=== PATIENT | male | born 1940 | race Caucasian/White ===

== ENCOUNTER → 2016-12-22 | Outpatient (CLI) | payer OTHER ==
[~2016-12-22] MED LIST: ACET325T96 PO; AMIO200T4 PO; AMLO-110 PO; CALC500C3 PO; FERR1TAB23 PO; METO100T44 PO; WARF5TAB7 PO; WARFARIN PO
[2016-12-22 13:36] LABS: BASO % 0.4 %; BASO ABS # 0.02 K/uL (0-0.2); COMPLETE YES; EOS % 0.7 %; HEMATOCRIT 38.9 % (42-52); LYMPH % 33.2 %; LYMPH ABS # 1.82 K/uL (1.2-3.4); MEAN CELL VOLUME 89.6 fL (80-100); MEAN CORPUSCULAR HEMOGLOBIN 29.3 pg (25-34); MEAN CORPUSCULAR HGB CONC 32.6 g/dl (32-36); MONO % 17.3 %; NEUT % 48.4 %; PLATELET COUNT 167 K/uL (130-400); RED BLOOD COUNT 4.34 M/uL (4.7-6.1); WHITE BLOOD COUNT 5.48 K/uL (4.8-10.8)
[2016-12-22 14:14] LABS: ALT/SGPT 24 U/L (12-78); BLOOD UREA NITROGEN 23 mg/dl (7-18); BUN/CREATININE RATIO 15.5 (10-20); CALCIUM 8.9 mg/dl (8.5-10.1); CARBON DIOXIDE 28 mmol/L (21-32); CHLORIDE 109 mmol/L (98-107); GLUCOSE 93 mg/dl (70-99); POTASSIUM 4.2 mmol/L (3.5-5.1); SODIUM 142 mmol/L (136-145)
[2016-12-22 14:23] LABS: ALB/GLOB RATIO 0.9 (0.9-2); ALKALINE PHOSPHATASE 91 U/L (45-117); AST/SGOT 21 U/L (15-37); FERRITIN 14.9 ng/ml (8.0-388.0); TOTAL IRON BINDING CAPACITY 413 mcg/dl (250-450)
--- NOTE | 2016-12-28 14:16 | CODING QUERY MEDICAL NECESSITY ---
SUPPORTING DIAGNOSIS NEEDED Dr. Genao, A supporting diagnosis is required for the test/procedure performed on this patient in order for us to be reimbursed by the patient's insurance. Please provide a supporting diagnosis for the following test/procedure listed below next to the test name along with your signature. *If there is no additional diagnosis for this patient that would support the following test/procedure please document that below next to the test/procedure. Test(s)/Procedure(s) that require a supporting diagnosis: * ([id number]) B12 VITAMIN LEVEL DIAGNOSIS: DATE OF SERVICE: 12/22/16 Provider Signature: Date: Thank you Delfino Llanos [facility] Information Management Once completed, please kindly fax back to [phone] For questions please call [phone]
== END | disposition home or self-care (01) ==
LOC: C.LABBC 09:59
PROVIDERS: ATTEND Internal Medicine
DX: N18.3 Chronic kidney disease, stage 3 (moderate) (principal); D64.9 Anemia, unspecified

== ENCOUNTER → 2017-04-20 | Day surgery (SDC) | payer OTHER ==
[2017-04-06 08:00] VITALS: BMI 21.0
[~2017-04-20] VITALS: Ht 182.9 cm; Wt 72.7 kg
[~2017-04-20] MED LIST changes: -ACET325T96 PO; -CALC500C3 PO; +LIDOCAINE HCL 2% 2 ML VIAL (20MG/ML) ONE; -METO100T44 PO; +METO1TAB69 PO; +PHENYLEPHRINE 100MCG/ML 5ML SYR ONE; +PROPOFOL IV EMULSION 10 MG/ML 20 ML VIAL IV ONE; +SODIUM CHLORIDE 0.9% 500ML 500 ML IV ONE; -WARFARIN PO
[2017-04-20 12:32] VITALS: Ht 182.9 cm; Wt 72.7 kg
[2017-04-20 12:38] VITALS: TEMP 36.1
--- NOTE | 2017-04-20 13:04 | Endo History and Physical ---
History & Physical Date of Service: Apr 20, 2017. Chief Complaint: 5 YEAR FOLLOW UP FAMILY HX-SISTER Referring Physician: DR Aftab GAONA History of Present Illness 77 yo CM who presents for colonoscopy secondary to family history of colon cancer. Past Medical History Atrial Fibrillation, Cancer, Hypertension, Kidney Disease Past Surgical History Hx Cardiac Surgery: No Hx Internal Defibrillator: No Hx Pacemaker: No Hx Abdominal Surgery: No Hx of Implantable Prosthesis: No Hx Post-Op Nausea and Vomiting: No Hx Cancer Surgery: Yes (ESOPHAGEAL TUMOR REMOVAL AND RECONSTRUCTION) Hx Thoracic Surgery: No Hx Orthopedic: Yes (RT HAND TENDON EXCISION) Hx Urinary Tract Surgery: Yes (TURP) Family History Colon CA Social History Smoking Status: Former Smoker Hx Substance Use: No Hx Alcohol Use: Yes (RARELY) Allergies Coded Allergies: Ampicillin (Unverified Allergy, Mild, RED PIMPLES ON CHEST, 04/20/17) Amoxicillin (Unverified Allergy, Unknown, RASH, 04/20/17) Penicillins (Verified Allergy, Unknown, RASH, 04/20/17) AMOXICILLIN Current Medications Reported Home Medications Medications Dose Route/Sig Max Daily Dose Days Date Category Iron (Ferrous Sulfate) 325 Mg Tab 1 Tab PO DAILY AT LUNCH 04/06/17 Reported Toprol-Xl (Metoprolol Succinate) 100 Mg Tabcr 100 Mg PO QAM 04/06/17 Reported Jantoven (Warfarin Sodium) 5 Mg Tab 5 Mg PO QPM 04/06/17 Reported Norvasc (Amlodipine Besylate) 5 Mg Tab 5 Mg PO QAM 12/06/13 Reported Cordarone (Amiodarone Hcl) 200 Mg Tab 200 Mg PO QAM 12/06/13 Reported Vital Signs Weight (Kilograms): 72.73 Height (Feet): 6 Height (Inches): 0 Date Time Temp Pulse Resp B/P (MAP) Pulse Ox O2 Delivery O2 Flow Rate FiO2 04/20/17 12:38 36.1 115 18 134/108 (117) 99 Room Air Physical Exam General Appearance: WD/WN, no apparent distress Respiratory/Chest: Auscultation: breath sounds normal Cardiovascular: Heart Auscultation: RRR Abdomen: Bowel Sounds: normal Inspection & Palpation: soft, non-distended, no tenderness, guarding & rebound Assessment and Plan Assessment: 77 yo CM who presents for colonoscopy secondary to family history of colon cancer. Plan: Proceed with colonoscopy.
--- NOTE | 2017-04-20 13:27 | Discharge Instructions ---
Endoscopy Patient Instructions Date / Procedure(s) Performed Apr 20, 2017. Colonoscopy Allergy Information Coded Allergies: Ampicillin (Unverified Allergy, Mild, RED PIMPLES ON CHEST, 04/20/17) Amoxicillin (Unverified Allergy, Unknown, RASH, 04/20/17) Penicillins (Verified Allergy, Unknown, RASH, 04/20/17) AMOXICILLIN Discharge Date / Findings Apr 20, 2017. Diverticulosis Internal hemorrhoids Medication Instructions Stopped Medication(s): COUMADIN IRON OK to resume all medications today as prescribed Reported Home Medications Medications Dose Route/Sig Max Daily Dose Days Date Category Iron (Ferrous Sulfate) 325 Mg Tab 1 Tab PO DAILY AT LUNCH 04/06/17 Reported Toprol-Xl (Metoprolol Succinate) 100 Mg Tabcr 100 Mg PO QAM 04/06/17 Reported Jantoven (Warfarin Sodium) 5 Mg Tab 5 Mg PO QPM 04/06/17 Reported Norvasc (Amlodipine Besylate) 5 Mg Tab 5 Mg PO QAM 12/06/13 Reported Cordarone (Amiodarone Hcl) 200 Mg Tab 200 Mg PO QAM 12/06/13 Reported Provider Instructions Activity Restrictions - No exercising or heavy lifting for 24 hours. - Do not drink alcohol the day of the procedure. - Do not drive a car or operate machinery until the day after the procedure. - Do not make any important decisions or sign important papers in 24 hours after the procedure. Following Day: - Return to full activity which may include returning to work/school. Diet Start your diet with liquids and light foods (jello, soup, juice, toast). Then eat your usual diet if not nauseated. Treatment For Common After Affects For mild abdominal pain, bloating, or excessive gas: - Rest - Eat lightly - Lie on right side Follow-Up Information Follow-up with DR Aftab GAONA as scheduled Anesthesia Information What You Should Know You have had a procedure that required some medicine to reduce anxiety and discomfort. This treatment is called moderate sedation. After receiving the treatment, you may be sleepy, but you will be able to breathe on your own. The effects of the treatment may last for several hours. Follow these instructions along with Activity/Diet recommendations noted above: * Do NOT do anything where dizziness or clumsiness would be dangerous. * Rest quietly at home today, then you can be up and about tomorrow. * Have a responsible person stay with you the rest of today. * You may have had an I.V. today. If so, you may take the dressing off later today. Recommendations Call your doctor if: * Trouble breathing * Continuous vomiting for more than 24 hours * Temperature above 101 degrees * Severe abdominal pain or bloating * Pain not relieved by pain medicine ordered * There is increased drainage or redness from any incision * A large amount of rectal bleeding greater than 2-3 tablespoons. (If you had a polyp/s removed or have hemorrhoids, a small amount of blood - from the rectum is to be expected.) * You have any unanswered questions or concerns. IN THE EVENT OF A SERIOUS EMERGENCY, GO TO THE NEAREST EMERGENCY ROOM Your discharge instructions were prepared by provider Nixon Miller. Patient Instructions Signature Page Randal Bridges Patient (or Guardian) Signature/Date: I have read and understand the instructions given to me by my caregivers. Caregiver/RN/Doctor Signature/Date: The above-named patient and/or guardian has received patient instructions on this date. + Original Patient Signature Page (only) stays with chart. Please make copy for patient.
--- NOTE | 2017-04-20 13:35 | GI REPORT ---
Procedure Date: 04/20/2017 12:51 PM Procedure: Colonoscopy Indications: Family history of colon cancer in a first-degree relative Medicines: Monitored Anesthesia Care Complications: No immediate complications. Estimated Blood Loss: Estimated blood loss: none. Procedure: Pre-Anesthesia Assessment: - Prior to the procedure, a History and Physical was performed, and patient medications and allergies were reviewed. The patient's tolerance of previous anesthesia was also reviewed. The risks and benefits of the procedure and the sedation options and risks were discussed with the patient. All questions were answered, and informed consent was obtained. Prior Anticoagulants: The patient has taken Coumadin (warfarin), last dose was 5 days prior to procedure. ASA Grade Assessment: III - A patient with severe systemic disease. After reviewing the risks and benefits, the patient was deemed in satisfactory condition to undergo the procedure. After I obtained informed consent, the scope was passed under direct vision. Throughout the procedure, the patient's blood pressure, pulse, and oxygen saturations were monitored continuously. The scope was introduced through the anus and advanced to the terminal ileum. The colonoscopy was performed without difficulty. The patient tolerated the procedure well. The quality of the bowel preparation was good. The terminal ileum, ileocecal valve, appendiceal orifice, and rectum were photographed. Findings: Multiple small-mouthed diverticula were found in the sigmoid colon. Non-bleeding internal hemorrhoids were found during retroflexion. The hemorrhoids were small. Impression: - Diverticulosis in the sigmoid colon. - Non-bleeding internal hemorrhoids. - No specimens collected. Recommendation: - Resume previous diet. - Continue present medications. - No repeat colonoscopy due to age and the absence of advanced adenomas. - Return to primary care physician as previously scheduled. Nixon Miller DO 04/20/2017 1:34:08 PM This report has been signed electronically. Note Initiated On: 04/20/2017 12:51 PM I attest to the content of the Intraoperative Record and orders documented therein, exceptions below
[2017-04-20 14:00] VITALS: BP 110/82; PULSE 86; O2SAT 97
--- NOTE | 2017-04-20 14:15 | Anesthesiology Progress Note ---
Anesthesia Post Op Note Date & Time Apr 20, 2017 at 14:15 Vital Signs Pain Intensity: 0 Vital Signs Past 12 Hours Date Time Temp Pulse Resp B/P (MAP) Pulse Ox O2 Delivery O2 Flow Rate FiO2 04/20/17 14:00 86 16 110/82 (91) 97 Room Air 04/20/17 13:45 99 16 101/78 (86) 97 Room Air 04/20/17 13:30 90 16 97/63 (74) 98 Room Air 04/20/17 12:38 36.1 115 18 134/108 (117) 99 Room Air Notes Mental Status: alert / awake / arousable, participated in evaluation Pt Amnestic to Procedure: Yes Nausea / Vomiting: adequately controlled Pain: adequately controlled Airway Patency, RR, SpO2: stable & adequate BP & HR: stable & adequate Hydration State: stable & adequate Anesthetic Complications: no major complications apparent
== END | disposition home or self-care (01) ==
LOC: C.GI 12:18
PROVIDERS: ATTEND Internal Medicine
DX: Z80.0 Family history of malignant neoplasm of digestive organs (principal); K57.30 Diverticulosis of large intestine without perforation or abscess without bleeding; K64.8 Other hemorrhoids; I48.91 Unspecified atrial fibrillation; I12.9 Hypertensive chronic kidney disease with stage 1 through stage 4 chronic kidney disease, or unspecified chronic kidney disease; N18.9 Chronic kidney disease, unspecified; Z87.891 Personal history of nicotine dependence; Z79.01 Long term (current) use of anticoagulants

== ENCOUNTER → 2017-12-09 | Outpatient (CLI) | payer OTHER ==
[~2017-12-09] MED LIST changes: -LIDOCAINE HCL 2% 2 ML VIAL (20MG/ML) ONE; +METO100T44 PO; -METO1TAB69 PO; -PHENYLEPHRINE 100MCG/ML 5ML SYR ONE; -PROPOFOL IV EMULSION 10 MG/ML 20 ML VIAL IV ONE; -SODIUM CHLORIDE 0.9% 500ML 500 ML IV ONE
--- NOTE | 2017-12-09 15:31 | DIAGNOSTIC IMAGING REPORT ---
CHEST 2 VIEWS ROUTINE HISTORY: 77 years-old Male R05 [id number] acute cough COMPARISON: Chest radiographs 09/09/2016 TECHNIQUE: PA and lateral views of the chest FINDINGS: Cardiac silhouette is within normal limits. Surgical clips project over the left mediastinum. Atherosclerosis of the aorta. No pneumothorax. Lungs are mildly hyperinflated. There are trace bilateral pleural effusions with subtle interstitial opacities within the right perihilar distribution and lateral right midlung with subsegmental consolidative bibasilar opacities. No overt pulmonary edema. Bones appear grossly intact. IMPRESSION: 1. Subsegmental bibasilar consolidative opacities with trace effusions are noted in addition to subtle interstitial opacities of the right midlung suspicious for pneumonia. 2. Hyperinflation. The above report was generated using voice recognition software. It may contain grammatical, syntax or spelling errors. Electronically signed by: Robert Bacon M.D. 12/09/2017 3:30 PM Dictated Date/Time: 12/09/2017 3:27 PM
== END | disposition home or self-care (01) ==
LOC: C.RADBC 15:12
PROVIDERS: ATTEND Internal Medicine
DX: R05 Cough (principal)

== ENCOUNTER → 2018-01-02 | Outpatient (CLI) | payer OTHER ==
--- NOTE | 2018-01-02 11:30 | DIAGNOSTIC IMAGING REPORT ---
CHEST 2 VIEWS ROUTINE CLINICAL HISTORY: J18.9 Community acquired [id number] COMPARISON STUDY: 12/09/2017 FINDINGS: The chest has an emphysematous configuration. There are multiple surgical clips projected over the mid mediastinum. There is no acute parenchymal consolidation. There is been interval resolution of the previous identified by basilar opacities. There is a trace right pleural effusion. There is no failure.[ IMPRESSION: 1. Pulmonary emphysema 2. Trace right pleural effusion 3. No evidence of focal pulmonary consolidation Electronically signed by: Matt Pink M.D. 01/02/2018 11:29 AM Dictated Date/Time: 01/02/2018 11:27 AM
== END | disposition home or self-care (01) ==
LOC: C.RADBC 11:12
PROVIDERS: ATTEND Nurse Practitioner Adult Health
DX: J18.9 Pneumonia, unspecified organism (principal); J43.9 Emphysema, unspecified

== ENCOUNTER 2021-06-08 21:59 | Inpatient (IN) ==
[2021-06-08] MEDS ORDERED: ERTAPENEM SODIUM 10 ML IV STA (22:23)
[2021-06-08] MEDS ORDERED: SODIUM CHLORIDE 0.9% 1000ML 1,000 ML IV SCH ×2 (22:30→23:30)
[2021-06-08 22:31] LABS: iSTAT Creatinine 2.5 mg/dl (0.6-1.3); iSTAT Hemoglobin 9.2 g/dl (14.0-18.0); iSTAT Ionized Calcium 1.16 mmol/l (1.12-1.32); iSTAT Potassium 3.5 mmol/L (3.3-5.0)
--- NOTE | 2021-06-08 22:35 | Emergency Department Note ---
History of Present Illness General Chief complaint: Fall Stated complaint: FALL Time Seen by Provider: 06/08/21 22:13 History of Present Illness 81-year-old male presents to the ED with his son and . The patient's son states that he had a fever of 104 earlier today. His fever started yesterday as a mild fever. Today he is weak. He was working on the farm. When he came in he was very weak. He fell going up the steps to go to the bathroom. The son states that he seemed a little disoriented earlier. The patient's reports some diarrhea yesterday and today. He does confirm feeling weak. He states that he did not take any of his medications today. Denies any chest pains or shortness of breath. Symptoms are worse with exertion. Denies any injuries related to his fall. He is reportedly on anticoagulation. Home Medications Medication Instructions Recorded Confirmed Type ferrous sulfate 325 mg (65 mg 325 mg PO QDL 04/29/20 06/08/21 History iron) tablet (Iron (ferrous sulfate)) apixaban 2.5 mg tablet (Eliquis) 2.5 mg PO BID #180 tab 07/25/20 06/08/21 Rx amiodarone 200 mg tablet 200 mg PO DAILY #90 tab 09/08/20 06/08/21 Rx amlodipine 5 mg tablet 5 mg PO DAILY #90 tab 10/13/20 06/08/21 Rx metoprolol succinate 50 mg 50 mg PO BID #180 tab 10/27/20 06/08/21 Rx tablet,extended release 24 hr Allergies Allergy/AdvReac Type Severity Reaction Status Date / Time amoxicillin Allergy Mild RASH Verified 06/08/21 22:51 ampicillin Allergy Mild RED Verified 06/08/21 22:51 PIMPLES ON CHEST Penicillins Allergy Mild RASH Verified 06/08/21 22:51 Past Med/Surg History Medical History (Updated 06/09/21 @ 00:50 by Vijay Bloom DO) Anemia Anxiety no meds Atrial fibrillation follows with Dr. 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 Sister Colorectal cancer Breast cancer Other No family history of adverse response to anesthesia Denies family history of Ovarian cancer Prostate cancer Myocardial infarction Osteoarthritis Lung cancer Social History Smoking Status: Never smoker Tobacco Type: Cigarettes, Pipe and Cigars Age Started Using Tobacco: 9; Age Quit Using Tobacco: 71; packs per day: 0.5; Second Hand Exposure: No; Hx Alcohol Use: No Hx Substance Use: No Preferred Language: Pakistani Communication Ability: Effective Visual Impairment: Diminished Hearing Ability: Hard of Hearing Pulmonologist Intensivist Required: No Beliefs That Will Affect Care: None marital status: Current Living Situation: Spouse current occupational status: employed current occupation: [employer] How many Children do You have: 1 Feels Safe at Home: Yes Childhood Exposure to Second-Hand Smoke: No caffeine: Yes (drinks coffee daily) Dental Care, Regularly: No Physical Activity Frequency: Daily Physical Activity Frequency Comment: is a landrum Seatbelt Use: always Sunscreen Use: No Assistive Devices: Denture - Upper and Glasses Review of Systems A total of 10 systems reviewed and were otherwise negative Physical Exam Vital Signs Vital Signs - 24 hr 06/08/21 22:02 06/08/21 22:10 06/08/21 22:20 Temperature 37.5 C Temperature Source Temporal Artery Scan Pulse Rate 186 H 176 H 157 H Pulse Rate from SpO2 Sensor 173 H 146 H Respiratory Rate 18 25 H 25 H Respiratory Effort / Characteristics Blood Pressure 101/38 L 119/71 105/69 Blood Pressure Mean 59 87 81 Pulse Oximetry 95 94 95 Oxygen Delivery Method Room Air Sepsis Recent Fever Within 48 Hours Yes Sepsis New/Unexplained Change in Mental Status Yes Sepsis Action Taken by Nursing Physician Notified 06/08/21 22:23 06/08/21 22:30 06/08/21 22:40 Temperature Temperature Source Pulse Rate 160 H 146 H Pulse Rate from SpO2 Sensor 164 H 135 H Respiratory Rate 28 H 28 H Respiratory Effort / Characteristics Non-Labored Blood Pressure 131/79 108/66 Blood Pressure Mean 96 80 Pulse Oximetry 96 94 93 Oxygen Delivery Method Room Air Sepsis Recent Fever Within 48 Hours Sepsis New/Unexplained Change in Mental Status Sepsis Action Taken by Nursing 06/08/21 22:50 06/08/21 23:00 06/08/21 23:10 Temperature Temperature Source Pulse Rate 135 H 150 H 143 H Pulse Rate from SpO2 Sensor 118 H 148 H 118 H Respiratory Rate 19 31 H 31 H Respiratory Effort / Characteristics Blood Pressure 117/57 L 96/68 L 108/61 Blood Pressure Mean 77 77 76 Pulse Oximetry 95 93 93 Oxygen Delivery Method Room Air Room Air Sepsis Recent Fever Within 48 Hours Sepsis New/Unexplained Change in Mental Status Sepsis Action Taken by Nursing 06/08/21 23:20 06/08/21 23:30 Temperature Temperature Source Pulse Rate 150 H 137 H Pulse Rate from SpO2 Sensor 122 H 131 H Respiratory Rate 31 H 25 H Respiratory Effort / Characteristics Blood Pressure 98/58 L 90/55 L Blood Pressure Mean 71 66 Pulse Oximetry 96 93 Oxygen Delivery Method Room Air Room Air Sepsis Recent Fever Within 48 Hours Sepsis New/Unexplained Change in Mental Status Sepsis Action Taken by Nursing CONSTITUTIONAL/VITAL SIGNS: Reviewed / noted above. GENERAL: Non-toxic in appearance. INTEGUMENTARY: Warm, dry, and [place]. HEAD: Normocephalic. EYES: without scleral icterus or trauma. ENT/OROPHARYNX: clear and moist. LYMPHADENOPATHY/NECK: Is supple without lymphadenopathy or meningismus. RESPIRATORY: Clear to auscultation bilaterally. No increased work of breathing. CARDIOVASCULAR: Tachycardic rate and irregular rhythm. GI/ABDOMEN: Soft and nontender. No organomegaly or pulsatile mass. EXTREMITIES: Warm and well perfused. BACK: No CVA tenderness. NEUROLOGICAL: Intact without focal deficits. PSYCHIATRIC: normal affect. MUSCULOSKELETAL: Normally developed with good muscle tone. TRIAGE NURSING DOCUMENTATION REVIEWED. Course Administered Medications Discontinued Medications Sodium Chloride (Nss 1000ml) 1,000 mls @ 999 mls/hr IV .Q1H1M REGINE Stop: 06/08/21 23:24 Last Infusion: 06/08/21 23:26 Dose: 0 mls/hr Documented by: [id number] Admin: 06/08/21 22:33 Dose: 999 mls/hr Documented by: [id number] Sodium Chloride (Nss 1000ml) 1,000 mls @ 999 mls/hr IV .Q1H1M REGINE Stop: 06/09/21 00:30 Last Admin: 06/08/21 22:47 Dose: 999 mls/hr Documented by: [id number] Ertapenem (Invanz) 10 mls @ 2 mls/min IV NOW STA Stop: 06/08/21 22:27 Last Admin: 06/08/21 22:38 Dose: 2 mls/min Documented by: [id number] Metoprolol Tartrate (Metoprolol Tartrate 1 Mg/Ml Vial) 5 mg IV NOW STA Stop: 06/08/21 23:11 Last Admin: 06/08/21 23:20 Dose: 5 mg Documented by: [id number] Medical Decision Making Differential Diagnosis Differential includes acute coronary syndrome, myocardial infarction, CVA, TIA, anemia, infection, pneumonia, UTI, pyelonephritis, poor nutrition, dehydration, electrolyte disturbance,hypoglycemia. Medical Records Attestation: I reviewed the patient's medical records. Home Medications Current Medication List: was personally reviewed by me Laboratory Data Attestation: I reviewed the patient's lab results. Result diagrams: 06/08/21 22:14 06/08/21 22:14 Lab Results 06/08/21 06/08/21 06/08/21 Range/Units 22:14 22:14 22:14 WBC 6.57 (4.8-10.8) K/uL RBC 3.57 L (4.7-6.1) M/uL Hgb 9.0 L (14.0-18.0) g/dL POC Hgb (14.0-18.0) g/dl Hct 29.4 L (42-52) % POC Hct (42-52) % MCV 82.4 (80-100) fL MCH 25.2 (25-34) pg MCHC 30.6 L (32-36) g/dL RDW Std Deviation 49.8 H (36.4-46.3) fL RDW Coeff of Familia 18.7 H (11.5-14.5) % Plt Count 84 L (130-400) K/uL Immature Gran % (Auto) 0.6 % Neut % (Auto) 89.1 % Lymph % (Auto) 4.7 % Aiken % (Auto) 5.6 % Eos % (Auto) 0.0 % Baso % (Auto) 0.0 % Neut # (Auto) 5.85 (1.4-6.5) K/uL Lymph # (Auto) 0.31 L (1.2-3.4) K/uL Aiken # (Auto) 0.37 (0.11-0.59) K/uL Eos # (Auto) 0.00 (0-0.5) K/uL Baso # (Auto) 0.00 (0-0.2) K/uL Immature Gran # (Auto) 0.04 H (0.00-0.02) K/uL Platelet Estimate Decreased L (Normal) Giant Platelets 1+ Polychromasia 1+ PT 10.9 (9.0-12.0) Seconds INR 1.1 (0.9-1.1) APTT 22.2 (21.0-31.0) Seconds PTT Ratio 0.8 POC Sodium (135-144) mmol/L Sodium 138 (136-145) mmol/L POC Potassium (3.3-5.0) mmol/L Potassium 3.4 L (3.5-5.1) mmol/L POC Chloride (101-112) mmol/L Chloride 106 (98-107) mmol/L Carbon Dioxide 20 L (21-32) mmol/L POC Total CO2 (24-31) mmol/L Anion Gap 12.0 H (3-11) POC Anion Gap (16-25) mmol/L POC BUN (7-18) mg/dl BUN 30 H (7-18) mg/dl Creatinine 2.49 H (0.6-1.4) mg/dl POC Creatinine (0.6-1.3) mg/dl Est Cr Clr Drug Dosing Not Reportable Est GFR ( Amer) 26.8 ml/min Est GFR (Non-Af Amer) 23.2 ml/min BUN/Creatinine Ratio 12.1 (10-20) Glucose 204 H (70-99) mg/dl POC Glucose (other) (70-99) mg/dl Lactate (0.4-2.0) mmol/L Calcium 9.2 (8.5-10.1) mg/dl POC Ioniz Calcium Kia (1.12-1.32) mmol/l Magnesium 2.0 (1.8-2.4) mg/dl Total Bilirubin 1.2 H (0.2-1) mg/dl AST 23 (15-37) U/L ALT 20 (12-78) U/L Alkaline Phosphatase 104 (45-117) U/L Troponin I 0.026 (0-0.045) ng/ml Total Protein 7.8 (6.4-8.2) gm/dl Albumin 3.3 L (3.4-5.0) gm/dl Globulin 4.5 H (2.5-4.0) gm/dl Albumin/Globulin Ratio 0.7 L (0.9-2) Procalcitonin (0-0.5) ng/ml COVID-19 Eval Order SARS-CoV-2 (PCR) (Negative) 06/08/21 06/08/21 06/08/21 Range/Units 22:14 22:14 22:17 WBC (4.8-10.8) K/uL RBC (4.7-6.1) M/uL Hgb (14.0-18.0) g/dL POC Hgb (14.0-18.0) g/dl Hct (42-52) % POC Hct (42-52) % MCV (80-100) fL MCH (25-34) pg MCHC (32-36) g/dL RDW Std Deviation (36.4-46.3) fL RDW Coeff of Familia (11.5-14.5) % Plt Count (130-400) K/uL Immature Gran % (Auto) % Neut % (Auto) % Lymph % (Auto) % Aiken % (Auto) % Eos % (Auto) % Baso % (Auto) % Neut # (Auto) (1.4-6.5) K/uL Lymph # (Auto) (1.2-3.4) K/uL Aiken # (Auto) (0.11-0.59) K/uL Eos # (Auto) (0-0.5) K/uL Baso # (Auto) (0-0.2) K/uL Immature Gran # (Auto) (0.00-0.02) K/uL Platelet Estimate (Normal) Giant Platelets Polychromasia PT (9.0-12.0) Seconds INR (0.9-1.1) APTT (21.0-31.0) Seconds PTT Ratio POC Sodium (135-144) mmol/L Sodium (136-145) mmol/L POC Potassium (3.3-5.0) mmol/L Potassium (3.5-5.1) mmol/L POC Chloride (101-112) mmol/L Chloride (98-107) mmol/L Carbon Dioxide (21-32) mmol/L POC Total CO2 (24-31) mmol/L Anion Gap (3-11) POC Anion Gap (16-25) mmol/L POC BUN (7-18) mg/dl BUN (7-18) mg/dl Creatinine (0.6-1.4) mg/dl POC Creatinine (0.6-1.3) mg/dl Est Cr Clr Drug Dosing Est GFR ( Amer) ml/min Est GFR (Non-Af Amer) ml/min BUN/Creatinine Ratio (10-20) Glucose (70-99) mg/dl POC Glucose (other) (70-99) mg/dl Lactate 2.7 H* (0.4-2.0) mmol/L Calcium (8.5-10.1) mg/dl POC Ioniz Calcium Kia (1.12-1.32) mmol/l Magnesium (1.8-2.4) mg/dl Total Bilirubin (0.2-1) mg/dl AST (15-37) U/L ALT (12-78) U/L Alkaline Phosphatase (45-117) U/L Troponin I (0-0.045) ng/ml Total Protein (6.4-8.2) gm/dl Albumin (3.4-5.0) gm/dl Globulin (2.5-4.0) gm/dl Albumin/Globulin Ratio (0.9-2) Procalcitonin 13.63 H (0-0.5) ng/ml COVID-19 Eval Order Covid19 at [facility] SARS-CoV-2 (PCR) (Negative) 06/08/21 06/08/21 06/09/21 Range/Units 22:17 22:18 00:01 WBC (4.8-10.8) K/uL RBC (4.7-6.1) M/uL Hgb (14.0-18.0) g/dL POC Hgb 9.2 L (14.0-18.0) g/dl Hct (42-52) % POC Hct 27 L (42-52) % MCV (80-100) fL MCH (25-34) pg MCHC (32-36) g/dL RDW Std Deviation (36.4-46.3) fL RDW Coeff of Familia (11.5-14.5) % Plt Count (130-400) K/uL Immature Gran % (Auto) % Neut % (Auto) % Lymph % (Auto) % Aiken % (Auto) % Eos % (Auto) % Baso % (Auto) % Neut # (Auto) (1.4-6.5) K/uL Lymph # (Auto) (1.2-3.4) K/uL Aiken # (Auto) (0.11-0.59) K/uL Eos # (Auto) (0-0.5) K/uL Baso # (Auto) (0-0.2) K/uL Immature Gran # (Auto) (0.00-0.02) K/uL Platelet Estimate (Normal) Giant Platelets Polychromasia PT (9.0-12.0) Seconds INR (0.9-1.1) APTT (21.0-31.0) Seconds PTT Ratio POC Sodium 137 (135-144) mmol/L Sodium (136-145) mmol/L POC Potassium 3.5 (3.3-5.0) mmol/L Potassium (3.5-5.1) mmol/L POC Chloride 105 (101-112) mmol/L Chloride (98-107) mmol/L Carbon Dioxide (21-32) mmol/L POC Total CO2 17 L (24-31) mmol/L Anion Gap (3-11) POC Anion Gap 20.0 (16-25) mmol/L POC BUN 28 H (7-18) mg/dl BUN (7-18) mg/dl Creatinine (0.6-1.4) mg/dl POC Creatinine 2.5 H (0.6-1.3) mg/dl Est Cr Clr Drug Dosing Est GFR ( Amer) ml/min Est GFR (Non-Af Amer) ml/min BUN/Creatinine Ratio (10-20) Glucose (70-99) mg/dl POC Glucose (other) 210 H (70-99) mg/dl Lactate 1.8 (0.4-2.0) mmol/L Calcium (8.5-10.1) mg/dl POC Ioniz Calcium Kia 1.16 (1.12-1.32) mmol/l Magnesium (1.8-2.4) mg/dl Total Bilirubin (0.2-1) mg/dl AST (15-37) U/L ALT (12-78) U/L Alkaline Phosphatase (45-117) U/L Troponin I (0-0.045) ng/ml Total Protein (6.4-8.2) gm/dl Albumin (3.4-5.0) gm/dl Globulin (2.5-4.0) gm/dl Albumin/Globulin Ratio (0.9-2) Procalcitonin (0-0.5) ng/ml COVID-19 Eval Order SARS-CoV-2 (PCR) NEGATIVE (Negative) Imaging Data Attestation: I personally reviewed and interpreted this imaging study as follows: My Impression: Chest x-ray: Per my interpretation there is no acute disease. No pneumothorax. No obvious infiltrate or pneumonitis. ECG Data Attestation: I personally reviewed and interpreted this ECG as follows: Additional Comments: Twelve-lead EKG: Per my interpretation there is a atrial fibrillation at a rate of 176. ST depressions and T wave inversions in the inferolateral leads. Head Trauma GCS Score: 15 MDM Narrative Patient is to the ED with generalized weakness and a reported fever earlier today. He did not take any antipyretics today. He also did not take his usual morning meds and afternoon meds because he was not feeling well. He did work outside doing some farming. He had a fever as high as 104 earlier today. The patient is found to be in a rapid atrial fibrillation with a heart rate in the 170s. His EKG shows some T wave inversions in ST depressions in the inferolateral leads. The patient denies striking his head when he fell going up the steps. Denies headache. Covid test is negative. BUN is 28 and creatinine is 2.5. This is up from a creatinine of baseline 1.6. Hemoglobin is 9. This is slightly below his baseline but not by much. Platelet count is 84. This is a little below his baseline as well. Lactic acid is 2.7. Troponin was negative. Chest x-ray was negative for acute disease. Procalcitonin level is elevated. The patient did receive some IV ertapenem and clearly for possibility of infection. He was given 3 L normal saline IV. He was also given metoprolol 5 mg IV. He was in A. fib with RVR. The heart rate did improve some. Blood pressure remains marginal around 100 systolic. He will be seen by the hospitalist for further inpatient evaluation and care. Impression & Plan Acute kidney injury, Generalized weakness, Acute dehydration, Diarrhea, Atrial fibrillation with RVR Discharge Plan Visit Data Chief Complaint: Fall Stated Complaint: FALL ED Provider: Vijay Bloom Discharge Problem: Acute kidney injury, Generalized weakness, Acute dehydration, Diarrhea, Atrial fibrillation with RVR Patient Disposition: Being Evaluated by Hospitalist Forms Stand Alone Forms: [facility], Virtual Emergency Department, Important Visit Information Prescriptions Prescriptions: No Action Eliquis 2.5 mg tablet 2.5 mg PO BID Qty: 180 RF: 3 amiodarone 200 mg tablet 200 mg PO DAILY Qty: 90 RF: 3 amlodipine 5 mg tablet 5 mg PO DAILY Qty: 90 RF: 3 metoprolol succinate 50 mg tablet extended release 24 hr 50 mg PO BID Qty: 180 RF: 3 ferrous sulfate [Iron (ferrous sulfate)] 325 mg (65 mg iron) Tablet 325 mg PO QDL RF: 0 Referrals Referrals: Randal Genao MD [Primary Care Provider] -
[2021-06-08 22:36] LABS: Mean Corpuscular Hgb Conc 30.6 g/dL (32-36)
[2021-06-08 22:52] LABS: INR 1.1 (0.9-1.1); Partial Thromboplastin Ratio 0.8; Partial Thromboplastin Time 22.2 Seconds (21.0-31.0); Prothrombin Time 10.9 Seconds (9.0-12.0)
[2021-06-08 22:56] LABS: Alanine Aminotransferase 20 U/L (12-78); Albumin Level 3.3 gm/dl (3.4-5.0); Aspartate Aminotransferase 23 U/L (15-37); BUN Creatinine Ratio 12.1 (10-20); Blood Urea Nitrogen 30 mg/dl (7-18); Calcium 9.2 mg/dl (8.5-10.1); Carbon Dioxide 20 mmol/L (21-32); Chloride 106 mmol/L (98-107); Est GFR (African American) 26.8 ml/min; Est GFR (Non-African American) 23.2 ml/min; Glucose 204 mg/dl (70-99); Potassium 3.4 mmol/L (3.5-5.1); Sodium 138 mmol/L (136-145)
[2021-06-08 23:01] LABS: Albumin Globulin Ratio 0.7 (0.9-2); Alkaline Phosphatase 104 U/L (45-117); Bilirubin,Total 1.2 mg/dl (0.2-1); Globulin 4.5 gm/dl (2.5-4.0); Total Protein 7.8 gm/dl (6.4-8.2); Troponin I 0.026 ng/ml (0-0.045)
[2021-06-08 23:07] LABS: Hematocrit (blood only) 29.4 % (42-52); Mean Corpuscular Hemoglobin 25.2 pg (25-34); Mean Corpuscular Volume 82.4 fL (80-100); RDW Coefficient of Variation 18.7 % (11.5-14.5); RDW Standard Deviation 49.8 fL (36.4-46.3); Red Blood Count 3.57 M/uL (4.7-6.1); White Blood Count 6.57 K/uL (4.8-10.8)
[2021-06-08] MEDS ORDERED: METOPROLOL TARTRATE 1 MG/ML VIAL IV STA (23:10)
[2021-06-08 23:11] LABS: Platelet Count 84 K/uL (130-400)
[2021-06-08 23:14] LABS: Giant Platelets 1+; Immature Granulocytes # (auto) 0.04 K/uL (0.00-0.02); Immature Granulocytes % (auto) 0.6 %; Lymphocytes # (auto) 0.31 K/uL (1.2-3.4); Lymphocytes % (auto) 4.7 %; Monocytes # (auto) 0.37 K/uL (0.11-0.59); Monocytes % (auto) 5.6 %; Neutrophils # (auto) 5.85 K/uL (1.4-6.5); Neutrophils % (auto) 89.1 %; Platelet Estimate Decreased (Normal); Polychromasia 1+
[2021-06-09] MEDS ORDERED: SODIUM CHLORIDE 0.9% 1000ML 1,000 ML IV ONE (00:25)
[2021-06-09 01:57] LABS: Lipase 59 U/L (73-393)
[2021-06-09] MEDS ORDERED: STAT IV Infusion **Titration per Protocol STA (02:45)
[2021-06-09] MEDS ORDERED: AMIODARONE 200 MG TAB PO STA (03:10)
--- NOTE | 2021-06-09 04:30 | History & Physical Report ---
Date of Service June 09, 2021 Assessment & Plan (1) Atrial fibrillation with RVR: Plan: 81 yo M w/ pMHx. of esophageal cancer, prostate cancer, renal cancer, GERD, COPD, HFpEF, hypercholesterolemia, mitral regurgitation, HTN and atrial fibrillation presents with weakness, abdominal pain, and found to meet SIRS criteria and in atrial fibrillation with a rapid rate. SIRS with hypotension, tachycardia, without a clear source QSOFA with 2 points - high risk Lactate 2.7->1.8, Procalcitonin 13.63, no leukocytosis CXR without a clearly identifiable focal opacity, CT a/p w/ atelectasis at lung bases - on empiric Ertapenem started in the ER given penicillin allergy - IVF X3L boluses in the ER along with continued fluids at a rate of 125 - admitted to PCU - MRSA screen ordered - blood cultures pending - urine cultures pending A. fib with RVR on anticoagulation [id number] score of 4 for age, CHF, HTN potentially caused by viral gastroenteritis as below or a unclear bacterial infection such as bacteremia or UTI EKG with atrial fibrillation w/ RVR troponin < 0.015 - HR elevated as high as 180's initially - given Metoprolol T. in the ER - given Amiodarone dose - will restart home dose of Metoprolol S. - rechecking troponin with AM labs - ECHO ordered Abdominal pain and diarrhea potentially viral process although no sick contacts, no prior antibiotics lowering the likelihood that this is c. diff CT a/p with multiple findings including reflux vs. achalasia and mild enteritis of the colon - supportive care with fluids - c. 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 2.5 up from baseline around 1.6 - fluids X3 bags along with a rate - recheck in AM Weakness and recent fall - PT & OT ordered Elevated blood sugar w/o diagnosis of DM BSG 204 - SSI ordered - basal insulin at 5 BID ordered - continue to follow blood sugars Anemia, normocytic Hx. of iron deficiency anemia s/p IV infusion prior iron level low at 33 - continue to follow HTN - holding Amlodipine in the setting of hypotension HFrEF, prior ECHO from 2010 shows EF of 30% - ordered ECHO - given a significant amount of fluid - continue to evaluate fluid status Code: full Diet: CC w/ DMII DVT: Eliquis BID (2) Diarrhea: (3) Generalized weakness: (4) Acute kidney injury: (5) Stage III chronic kidney disease: (6) Renal neoplasm: (7) Prostate cancer: (8) Multiple pulmonary nodules: (9) Mitral valve regurgitation: (10) Gastroesophageal reflux disease: (11) Chronic obstructive pulmonary disease: (12) Adenocarcinoma of esophagus: (13) Anemia: (14) Hypercholesterolemia: (15) Chronic diastolic CHF (congestive heart failure): History of Present Illness Chief Complaint: Abdominal pain, weakness Primary Care Provider: Randal Genao MD Randal Bridges is a 81-year-old male with a past medical history of esophageal cancer, prostate cancer, renal cancer, GERD, COPD, HFpEF, hypercholesterolemia, mitral regurgitation, HTN and atrial fibrillation presents with abdominal pain and weakness. He had an IV iron infusion on which was the first he has had. Yesterday he noted that he had abdominal pain that was described as mild discomfort along with retching without vomiting. He again had an episode today where he was having abdominal pain and nausea. 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 He was also noted by his Celina to be weak and to have fallen in the bathroom. He was having trouble walking up the stairs to the [facility] and when he got their he was stooped over and fell onto his hands without hitting his head or losing consciousness. He has also had sweats and night sweats over the last couple days. He had diarrhea yesterday as well as today, he normally has regular bowel movements and has not had any recent constipation. Penicillin allergy was 30 years ago and involved a rash on his chest. Social Hx. tobacco use: 20 pack year quit 2012 ETOH: rarely rec. drugs: none Celina would like to be updated with any changes: # [phone] Allergies Allergy/AdvReac Type Severity Reaction Status Date / Time amoxicillin Allergy Mild RASH Verified 06/08/21 22:51 ampicillin Allergy Mild RED Verified 06/08/21 22:51 PIMPLES ON CHEST Penicillins Allergy Mild RASH Verified 06/08/21 22:51 Home Medications Medication Instructions Recorded Confirmed Type ferrous sulfate 325 mg (65 mg 325 mg PO QDL 04/29/20 06/08/21 History iron) tablet (Iron (ferrous sulfate)) apixaban 2.5 mg tablet (Eliquis) 2.5 mg PO BID #180 tab 07/25/20 06/08/21 Rx amiodarone 200 mg tablet 200 mg PO DAILY #90 tab 09/08/20 06/08/21 Rx amlodipine 5 mg tablet 5 mg PO DAILY #90 tab 10/13/20 06/08/21 Rx metoprolol succinate 50 mg 50 mg PO BID #180 tab 10/27/20 06/08/21 Rx tablet,extended release 24 hr Past Med/Surg History Medical History (Updated 06/09/21 @ 18:45 by Manohar Bailey MD) Anemia Anxiety no meds Atrial fibrillation follows with Dr. Shi, reason for eliquis BPH (benign prostatic hyperplasia) Diverticulosis Hearing deficit History of esophageal cancer 2012--sx History of tumor left kidney--monitoring for now Hypertension On anticoagulant therapy eliquis daily Urinary retention Surgical History History of colonoscopy History of esophageal surgery 2012 to remove cancer @ [facility] Presby History of esophagogastroduodenoscopy (EGD) History of prostate surgery prior to TURP History of tooth extraction all upper teeth History of transurethral resection of prostate Family History Mother No problems noted. Sister Colorectal cancer Breast cancer Other No family history of adverse response to anesthesia Denies family history of Ovarian cancer Prostate cancer Myocardial infarction Osteoarthritis Lung cancer Social History Smoking Status: Former smoker Tobacco Type: Cigarettes, Pipe and Cigars Age Started Using Tobacco: 9; Age Quit Using Tobacco: 71; packs per day: 0.5; Second Hand Exposure: No; Do You Dip or Chew Tobacco: No; Tobacco Cessation Education Requested by Patient: No Hx Alcohol Use: No Hx Substance Use: No Preferred Language: Czech Communication Ability: Effective Visual Impairment: Diminished Hearing Ability: Hard of Hearing Decision Analyst Required: Yes Beliefs That Will Affect Care: None marital status: Current Living Situation: Spouse current occupational status: employed current occupation: [employer] How many Children do You have: 1 Other Information That Helps Us Care for You: No Feels Safe at Home: Yes Safety Concerns: Feels Safe At This Time Childhood Exposure to Second-Hand Smoke: No caffeine: Yes (drinks coffee daily) Dental Care, Regularly: No Physical Activity Frequency: Daily Physical Activity Frequency Comment: is a land[employer] Seatbelt Use: always Sunscreen Use: No Assistive Devices: Denture - Upper Review of Systems Review of Systems: Constitutional: denies vomiting, weight loss admits fever, chills, nausea, general weakness, diaphoresis, night sweats Head: denies trauma, LOC, confusion, lightheadedness, vision changes Neuro: denies slurring of speech, focal weakness ENT: denies rhinorrhea, stuffiness, sneezing, sore throat Cardiac: denies chest pain, palpitations Pulm.: denies cough, hemoptysis admits shortness of breath and sputum production GI: denies blood in stool admits diarrhea : denies urgency, frequency, dysuria Physical Exam Constitutional: + lethargic; no acute distress Eyes: PERRL, conjunctivae normal, anicteric sclerae ENMT: external ear and nose normal, oropharynx normal Ears: + hearing impairment Neck: normal visual inspection Respiratory: normal respiratory effort, lungs clear to auscultation Cardiovascular: Rate/Rhythm: + tachycardic and + irregularly irregular Extremities: no pedal edema Gastrointestinal (Abdomen): - soft, no guarding - nTTP Skin: no rashes, warm and dry Psychiatric: A+Ox3, euthymic affect Results & Data Results & Data ([facility]) Vital Signs (Past 12 Hours) Vital Signs Temp Pulse Resp BP Pulse Ox 06/09/21 04:00 92 H 22 93/57 L 96 06/09/21 03:45 125 H 22 88/58 L 96 06/09/21 03:30 137 H 20 94/62 L 93 06/09/21 03:15 113 H 10 L 89/57 L 95 06/09/21 03:00 114 H 6 L 94/56 L 94 06/09/21 02:45 116 H 0 L 86/54 L 95 06/09/21 02:32 134 H 94 06/09/21 02:31 94 06/09/21 02:30 117 H 0 L 96/58 L 95 06/09/21 02:15 123 H 28 H 98/60 L 95 06/09/21 02:00 133 H 28 H 105/64 92 06/09/21 01:45 136 H 25 H 102/64 93 06/09/21 01:30 137 H 23 110/81 95 06/09/21 01:15 136 H 26 H 87/64 L 95 06/09/21 01:00 147 H 29 H 102/63 92 06/09/21 00:45 141 H 27 H 90/60 L 93 06/09/21 00:31 143 H 20 110/89 97 06/09/21 00:15 132 H 20 98/60 L 06/09/21 00:00 144 H 20 98/65 L 94 06/08/21 23:45 152 H 20 108/64 93 06/08/21 23:30 137 H 25 H 90/55 L 93 06/08/21 23:20 150 H 31 H 98/58 L 96 06/08/21 23:10 143 H 31 H 108/61 93 06/08/21 23:00 150 H 31 H 96/68 L 93 06/08/21 22:50 135 H 19 117/57 L 95 06/08/21 22:40 146 H 28 H 108/66 93 06/08/21 22:30 160 H 28 H 131/79 94 06/08/21 22:23 96 06/08/21 22:20 157 H 25 H 105/69 95 06/08/21 22:10 176 H 25 H 119/71 94 06/08/21 22:02 37.5 C 186 H 18 101/38 L 95 CBC Results Results Complete Blood Count Results: RBC 2.97 M/uL (4.7-6.1) L 06/09/21 WBC 22.08 K/uL (4.8-10.8) H 06/09/21 Hgb 7.6 g/dL (14.0-18.0) L 06/09/21 Hct 24.9 % (42-52) L 06/09/21 Plt Count 72 K/uL (130-400) L 06/09/21 Chemistry (BMP) Results BMP Results: Sodium 141 mmol/L (136-145) 06/09/21 Potassium 3.5 mmol/L (3.5-5.1) 06/09/21 Chloride 111 mmol/L (98-107) H 06/09/21 BUN 30 mg/dl (7-18) H 06/09/21 Creatinine 2.09 mg/dl (0.6-1.4) H 06/09/21 Glucose 124 mg/dl (70-99) H 06/09/21 Code Status & VTE Plan VTE Prophylaxis Plan VTE Prophylaxis will be ordered: Yes Supervising Physician Co-Signing Physician Notes Patient seen and examined, chart reviewed, case discussed with Dr. Huggins and I agree with his assessment and plan as above AF with RVR, rate to 176 on arrival. BP is borderline. +Sepsis, source unclear. Procalcitonin = 13.63 IVF resuscitation administered Continue Amiodarone. Consider IV dosing if HR doesn't improve with PO home dose vs digoxin. 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
[2021-06-09] MEDS ORDERED: POLYETHYLENE (MIRALAX) 17 GM PACK PO PRN (04:57)
[2021-06-09] MEDS ORDERED: GLUCAGON FOR INJ 1 MG VIAL SQ PRN (04:57)
[2021-06-09] MEDS ORDERED: DEXTROSE 50% 50 ML SYRINGE IV PRN (04:57)
[2021-06-09] MEDS ORDERED: GLUCOSE 10 TABS/TUBE PO PRN (04:57)
[2021-06-09] MEDS ORDERED: CARBOHYDRATES FOR HYPOGLYCEMIA PO PRN (04:57)
[2021-06-09] MEDS ORDERED: ACETAMINOPHEN 325 MG TAB PO PRN (04:57)
[2021-06-09] MEDS ORDERED: GLUCOSE 40% GEL 15 GM TUBE PO PRN (04:57)
[2021-06-09] MEDS ORDERED: SODIUM CHLORIDE 0.45 % 1,000 ML IV SCH (05:15)
[2021-06-09 06:22] LABS: BUN Creatinine Ratio 12.5 (10-20); Calcium 8.2 mg/dl (8.5-10.1); Creatinine Clr Calc Pharmacy 23.8 ml/min; Est GFR (African American) 30.3 ml/min; Est GFR (Non-African American) 26.2 ml/min; Potassium 3.1 mmol/L (3.5-5.1)
[2021-06-09 06:36] LABS: Beta-Hydroxybutyrate 1.28 mg/dl (0.2-2.81); Phosphorus 2.8 mg/dl (2.5-4.9); Troponin I 0.159 ng/ml (0-0.045)
[2021-06-09 07:01] LABS: Hematocrit (blood only) 24.3 % (42-52); Hemoglobin 7.6 g/dL (14.0-18.0); Mean Corpuscular Hemoglobin 26.1 pg (25-34); Mean Corpuscular Hgb Conc 31.3 g/dL (32-36); Mean Corpuscular Volume 83.5 fL (80-100); Mean Platelet Volume 12.3 fL (7.4-10.4); Platelet Count 81 K/uL (130-400); RDW Coefficient of Variation 19.1 % (11.5-14.5); RDW Standard Deviation 53.1 fL (36.4-46.3); Red Blood Count 2.91 M/uL (4.7-6.1)
[2021-06-09 07:03] LABS: ALC (manual) 0.21 K/uL (1.2-3.4); ANC (manual) 22.04 K/uL (1.4-6.5); Dohle Bodies 1+; Lymphocytes # (manual) 0.21 K/uL (1.2-3.4); Lymphocytes % (manual) 0.9 %; Monocytes # (manual) 1.45 K/uL (0.11-0.59); Monocytes % (manual) 6.1 %; Neutrophils # (manual) 22.04 K/uL (1.4-6.5); Platelet Estimate Decreased (Normal); Polychromasia 1+
--- NOTE | 2021-06-09 07:42 | XRay Report ---
SINGLE VIEW CHEST CLINICAL HISTORY: Sepsis. FINDINGS: 2 AP, portable, upright chest radiographs are compared to study dated 07/08/2016 and correl ated with chest CT dated 09/20/2015. Surgical clips project over the mediastinum. The heart is enlarged noting atherosclerotic calcification of the thoracic aorta. The pulmonary vasculature is noncongeste d. Emphysema and chronic interstitial thickening is similar to previous. No airspace consolidation or large pleural effusion is identified. Scarring/atelectasis is noted at the lung bases. No pneumothor ax is seen. The skeletal structures are osteopenic. The bony thorax is grossly intact. IMPRESSION: Cardiomegaly and emphysema with no acute cardiopulmonary abnormality. ACT 112: Negative or not required by law. Electronically signed by: Denis Levin M.D. 06/09/2021 7:40 AM
--- NOTE | 2021-06-09 08:04 | CT Scan Report ---
CT SCAN OF THE ABDOMEN AND PELVIS WITHOUT IV CONTRAST CLINICAL HISTORY: Generalized abdominal pain. COMPARISON STUDY: Abdominal CT dated 10/09/2012. TECHNIQUE: CT scan of the abdomen and pelvis is performed from the lung bases to the proximal femora. Images are reviewed in the axial, sagittal, and coronal planes. IV contrast was not administered for this examination. Note that the examination is suboptimal without IV contrast. Oral contrast was uti lized. The examination is compromised by motion artifact. A dose lowering technique was utilized adhe ring to the principles of ALARA. CT DOSE: 284.41 mGy.cm FINDINGS: Lung bases: The heart is enlarged and noting a small pericardial effusion. There are coronary artery calcifications. There is decreased attenuation of the cardiac blood pool as compared to the myocardiu m suggesting anemia. Dependent airspace opacities are seen at both lung bases. No pleural effusion is identified. Findings suggest an esophageal pull-through procedure. Liver: The unenhanced liver is normal in size, contour, and attenuation. There is no intrahepatic yogesh iary ductal dilatation. A 1.6 cm cyst is noted in the right lobe. Gallbladder: Contracted versus surgically absent. Spleen: Normal in size and attenuation. Pancreas: The unenhanced pancreas is grossly unremarkable but not well evaluated. Adrenal glands: Nodular thickening of the left adrenal gland is similar to previous. The right adrena l gland is grossly unremarkable. Kidneys: The unenhanced kidneys demonstrate mild cortical atrophy and are without hydronephrosis. The re are no renal calculi identified. Foci of cortical scarring are noted in the left kidney. A 1.8 cm solid mass lesion is again seen arising from lower pole of the right kidney. This has increased in s e as compared to 2012 and remains highly concerning for a renal neoplasm. Cysts are suggested in th e left kidney. Abdominal vasculature: There is moderate to advanced atherosclerotic calcification and mild ectasia o f the abdominal aorta. Bowel: There is mild to moderate colonic diverticulosis without CT evidence of acute diverticulitis. No bowel obstruction is identified. Enteric contrast reaches the left colon. The appendix is well-vi sualized and normal. Peritoneum: There is no intraperitoneal free air or abdominal ascites. Lymphadenopathy: None. Pelvic viscera: The prostate gland is enlarged and heterogeneous noting median lobe hypertrophy. The bladder wall appears thickened and trabeculated indicating chronic outlet obstruction. The bladder is moderately distended. Skeletal structures: The skeletal structures are osteopenic. There is moderate to advanced lumbosacra l spondylosis. No lytic or blastic lesions are seen. IMPRESSION: 1. Suboptimal examination without IV contrast. There is also significant motion artifact. 2. No acute infectious or inflammatory findings are identified in the abdomen or pelvis. 3. Bibasilar airspace opacities are nonspecific. This could represent scarring/atelectasis versus an infectious/inflammatory pneumonitis. Clinical correlation will be required. 4. There is a 1.8 cm solid exophytic mass lesion again seen arising from the lower pole of the right kidney. This has increased in size as compared to 10/09/2012 and was shown to represent a contrast enh ancing lesion at the time. Renal cell carcinoma remains the diagnosis of exclusion. 5. Cardiomegaly. 6. There is evidence of a previous gastric pull-through procedure. 7. Additional findings as above. ACT 112: Negative or not required by law. Electronically signed by: Denis Levin M.D. 06/09/2021 8:03 AM
[2021-06-09] MEDS: INSULIN ASPART 100 UNITS/ML 3 ML PEN SC SCH ×4 (08:20→21:39)
[2021-06-09] MEDS: APIXABAN 2.5 MG TAB PO SCH ×2 (08:21→23:22)
[2021-06-09] MEDS: AMIODARONE 200 MG TAB PO SCH (08:21)
[2021-06-09] MEDS: INSULIN GLARGINE SOLOSTAR 100 UNITS/ML 3 ML PEN SC SCH ×2 (09:45→21:40)
--- NOTE | 2021-06-09 10:24 | Hospitalist Progress Note ---
Date of Service June 09, 2021 Assessment & Plan (1) Atrial fibrillation with RVR: Plan: 81 yo M w/ pMHx. of esophageal cancer, prostate cancer, renal cancer, GERD, COPD, HFpEF, hypercholesterolemia, mitral regurgitation, HTN and atrial fibrillation presents with weakness, abdominal pain, and found to meet SIRS criteria and in atrial fibrillation with RVR. Sepsis POA -Lactate 2.7->1.8, Procalcitonin 13.63, no leukocytosis -CXR without a clearly identifiable focal opacity, CT a/p w/ atelectasis at lung bases - on empiric Ertapenem started in the ER given penicillin allergy, has gram negative coverage - IVF X3L boluses in the ER along with continued fluids at a rate of 125 - admitted to PCU - MRSA screen ordered, pending - blood cultures show gram negative rods, pending - urine cultures pending A. fib with RVR on anticoagulation -[id number] score of 4 for age, CHF, HTN -EKG with atrial fibrillation w/ RVR, HR up to 180's -troponin < 0.015 on admit trending up to 0.213 - likely demand ischemia - ECHO 06/09 shows EF 50-55% improved from 2010, borderline global hypokinesia of left ventricle - given Metoprolol T. in the ER, metoprolol currently held due to soft pressures - continue Amiodarone -cardiology consulted, suggested continue amiodarone, continue metoprolol when BP higher, use caution with IVF Abdominal pain and diarrhea potentially viral process although no sick contacts, no prior antibiotics lowering the likelihood that this is c. diff -CT a/p with multiple findings including reflux vs. achalasia and mild enteritis of the colon - recieved IVF in ED - c. 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 2.5 up from baseline around 1.6, currently 2.09 Weakness and recent fall - PT & OT ordered Elevated blood sugar w/o diagnosis of DM -BSG 204 --> 124 - SSI ordered - basal insulin at 5 BID ordered - continue to follow blood sugars Anemia, normocytic -Hx. of iron deficiency anemia s/p IV infusion -prior iron level low at 33 - continue to follow HTN - holding Amlodipine, metoprolol in the setting of hypotension HFrEF, prior ECHO from 2010 shows EF of 30% - ECHO 06/09 shows EF 50-55% inproved from 2010, borderline global hypokinesia of left ventricle - given a significant amount of fluid - continue to evaluate fluid status (2) Diarrhea: (3) Generalized weakness: (4) Acute kidney injury: (5) Stage III chronic kidney disease: (6) Renal neoplasm: (7) Prostate cancer: (8) Multiple pulmonary nodules: (9) Mitral valve regurgitation: (10) Gastroesophageal reflux disease: (11) Chronic obstructive pulmonary disease: (12) Adenocarcinoma of esophagus: (13) Anemia: (14) Hypercholesterolemia: (15) Chronic diastolic CHF (congestive heart failure): Admission and Anticipated Discharge Date Admission Date: June 09, 2021 Supervising Physician Co-Signing Physician Notes Resident Physician Supervision Note: I independently interviewed and examined the patient and verified the esquivel history and physical, reviewed labs and image studies and agree with resident Dr. Cespedes findings and care plan. Subjective 81yo Male with PMH cancer (esophageal, prostate, renal), GERD, COPD, HFpEF, HLD, HTN, afib here for weakness, abd pain, and afib with RVR meeting SIRS criteria. Patient seen at bedside resting comfortably, no complaints of SOB chest pain abd pain at this time. Patient is hard of hearing. Review of Systems Review of Systems: Negative fever chills Negative headache dizziness Negative chest pain palpitations SOB Negative nausea vomitting diarrhea constipation Negative numbness tingling rash swelling Physical Exam Physical Exam: General: Well appearing, age appropriate Heart: atrial fibrillation Lungs: cta b/l, no wheezes/rales/rhonchi Abd: soft, NT/ND, +BS Extremities: no swelling, no rashes Results & Data Results & Data ([facility]) Vital Signs (Past 12 Hours) Vital Signs Temp Pulse Pulse Resp BP BP BP 06/09/21 08:00 92 H 06/09/21 07:22 36.4 C L 75 19 148/64 H 06/09/21 07:13 98 H 06/09/21 05:09 36.7 C 96 H 16 113/68 06/09/21 04:38 36.7 C 111 H 18 113/68 06/09/21 04:00 92 H 22 93/57 L 09/21/21 03:45 125 H 22 88/58 L 06/09/21 03:30 137 H 20 94/62 L 06/09/21 03:15 113 H 10 L 89/57 L 06/09/21 03:00 114 H 6 L 94/56 L 06/09/21 02:45 116 H 0 L 86/54 L 06/09/21 02:32 134 H 06/09/21 02:31 06/09/21 02:30 117 H 0 L 96/58 L 06/09/21 02:15 123 H 28 H 98/60 L 06/09/21 02:00 133 H 28 H 105/64 06/09/21 01:45 136 H 25 H 102/64 06/09/21 01:30 137 H 23 110/81 06/09/21 01:15 136 H 26 H 87/64 L 06/09/21 01:00 147 H 29 H 102/63 06/09/21 00:45 141 H 27 H 90/60 L 06/09/21 00:31 143 H 20 110/89 06/09/21 00:15 132 H 20 98/60 L 06/09/21 00:00 144 H 20 98/65 L 06/08/21 23:45 152 H 20 108/64 06/08/21 23:30 137 H 25 H 90/55 L 06/08/21 23:20 150 H 31 H 98/58 L 06/08/21 23:10 143 H 31 H 108/61 06/08/21 23:00 150 H 31 H 96/68 L 06/08/21 22:50 135 H 19 117/57 L 06/08/21 22:40 146 H 28 H 108/66 06/08/21 22:30 160 H 28 H 131/79 Pulse Ox 06/09/21 08:00 06/09/21 07:22 98 06/09/21 07:13 06/09/21 05:09 97 06/09/21 04:38 97 06/09/21 04:00 96 06/09/21 03:45 96 06/09/21 03:30 93 06/09/21 03:15 95 06/09/21 03:00 94 06/09/21 02:45 95 06/09/21 02:32 94 06/09/21 02:31 94 06/09/21 02:30 95 06/09/21 02:15 95 06/09/21 02:00 92 06/09/21 01:45 93 06/09/21 01:30 95 06/09/21 01:15 95 06/09/21 01:00 92 06/09/21 00:45 93 06/09/21 00:31 97 06/09/21 00:15 06/09/21 00:00 94 06/08/21 23:45 93 06/08/21 23:30 93 06/08/21 23:20 96 06/08/21 23:10 93 06/08/21 23:00 93 06/08/21 22:50 95 06/08/21 22:40 93 06/08/21 22:30 94 Laboratory Results 06/09/21 06/09/21 06/09/21 Range/Units 16:30 11:48 11:48 WBC 22.08 H (4.8-10.8) K/uL RBC 2.97 L (4.7-6.1) M/uL Hgb 7.6 L (14.0-18.0) g/dL POC Hgb (14.0-18.0) g/dl Hct 24.9 L (42-52) % POC Hct (42-52) % MCV 83.8 (80-100) fL MCH 25.6 (25-34) pg MCHC 30.5 L (32-36) g/dL RDW Std Deviation 53.9 H (36.4-46.3) fL RDW Coeff of Familia 19.5 H (11.5-14.5) % Plt Count 72 L (130-400) K/uL MPV (7.4-10.4) fL Immature Gran % (Auto) % Neut % (Auto) % Lymph % (Auto) % [place] % (Auto) % Eos % (Auto) % Baso % (Auto) % Neut # (Auto) (1.4-6.5) K/uL Lymph # (Auto) (1.2-3.4) K/uL [place] # (Auto) (0.11-0.59) K/uL Eos # (Auto) (0-0.5) K/uL Baso # (Auto) (0-0.2) K/uL Immature Gran # (Auto) (0.00-0.02) K/uL Neutrophils % (Manual) 92.2 % Lymphocytes % (Manual) 5.2 % Monocytes % (Manual) 2.6 % Neutrophils # (Manual) 20.36 H (1.4-6.5) K/uL Total Absolute Neuts 20.36 H (1.4-6.5) K/uL Lymphocytes # (Manual) 1.15 L (1.2-3.4) K/uL Total Abs Lymphocytes 1.15 L (1.2-3.4) K/uL Monocytes # (Manual) 0.57 (0.11-0.59) K/uL Dohle Bodies Platelet Estimate Decreased L (Normal) Giant Platelets Polychromasia PT (9.0-12.0) Seconds INR (0.9-1.1) APTT (21.0-31.0) Seconds PTT Ratio POC Sodium (135-144) mmol/L Sodium (136-145) mmol/L POC Potassium (3.3-5.0) mmol/L Potassium (3.5-5.1) mmol/L POC Chloride (101-112) mmol/L Chloride (98-107) mmol/L Carbon Dioxide (21-32) mmol/L POC Total CO2 (24-31) mmol/L Anion Gap (3-11) POC Anion Gap (16-25) mmol/L POC BUN (7-18) mg/dl BUN (7-18) mg/dl Creatinine (0.6-1.4) mg/dl POC Creatinine (0.6-1.3) mg/dl Est Cr Clr Drug Dosing Est GFR ( Amer) ml/min Est GFR (Non-Af Amer) ml/min BUN/Creatinine Ratio (10-20) Glucose (70-99) mg/dl POC Glucose 95 (70-99) mg/dl POC Glucose (other) (70-99) mg/dl Lactate (0.4-2.0) mmol/L Calcium (8.5-10.1) mg/dl POC Ioniz Calcium Kia (1.12-1.32) mmol/l Phosphorus (2.5-4.9) mg/dl Magnesium (1.8-2.4) mg/dl Total Bilirubin (0.2-1) mg/dl AST (15-37) U/L ALT (12-78) U/L Alkaline Phosphatase (45-117) U/L Troponin I (0-0.045) ng/ml Total Protein (6.4-8.2) gm/dl Albumin (3.4-5.0) gm/dl Globulin (2.5-4.0) gm/dl Albumin/Globulin Ratio (0.9-2) Lipase (73-393) U/L Beta-Hydroxybutyric Acd (0.2-2.81) mg/dl Procalcitonin (0-0.5) ng/ml Urine Color Urine Appearance (Clear) Urine pH (4.5-7.5) Ur Specific [place] (1.000-1.030) Urine Protein (Negative) Urine Glucose (UA) (Negative) Urine Ketones (Negative) Urine Blood (Negative) Urine Nitrite (Negative) Urine Bilirubin (Negative) Urine Urobilinogen (Negative) Ur Leukocyte Esterase (Negative) Urine WBC (Auto) (0-5) /hpf Urine RBC (Auto) (0-4) /hpf U Hyaline Cast (Auto) (0-5) /lpf U Epithel Cells (Auto) (0-5) /lpf Urine Bacteria (Auto) (Negative) Amorphous Sediment (None Prsent) Granular Casts (0) /lpf WBC Casts (0) /lpf Urine Yeast Nasal Screen MRSA (PCR) (Negative) Anaplasma Smear Lyme Disease IgG Ab Negative (Negative) Lyme Disease IgM Ab Negative (Negative) COVID-19 Eval Order SARS-CoV-2 (PCR) (Negative) Blood Type Antibody Screen 06/09/21 06/09/21 06/09/21 Range/Units 11:48 11:32 11:07 WBC (4.8-10.8) K/uL RBC (4.7-6.1) M/uL Hgb (14.0-18.0) g/dL POC Hgb (14.0-18.0) g/dl Hct (42-52) % POC Hct (42-52) % MCV (80-100) fL MCH (25-34) pg MCHC (32-36) g/dL RDW Std Deviation (36.4-46.3) fL RDW Coeff of Familia (11.5-14.5) % Plt Count (130-400) K/uL MPV (7.4-10.4) fL Immature Gran % (Auto) % Neut % (Auto) % Lymph % (Auto) % [place] % (Auto) % Eos % (Auto) % Baso % (Auto) % Neut # (Auto) (1.4-6.5) K/uL Lymph # (Auto) (1.2-3.4) K/uL [place] # (Auto) (0.11-0.59) K/uL Eos # (Auto) (0-0.5) K/uL Baso # (Auto) (0-0.2) K/uL Immature Gran # (Auto) (0.00-0.02) K/uL Neutrophils % (Manual) % Lymphocytes % (Manual) % Monocytes % (Manual) % Neutrophils # (Manual) (1.4-6.5) K/uL Total Absolute Neuts (1.4-6.5) K/uL Lymphocytes # (Manual) (1.2-3.4) K/uL Total Abs Lymphocytes (1.2-3.4) K/uL Monocytes # (Manual) (0.11-0.59) K/uL Dohle Bodies Platelet Estimate (Normal) Giant Platelets Polychromasia PT (9.0-12.0) Seconds INR (0.9-1.1) APTT (21.0-31.0) Seconds PTT Ratio POC Sodium (135-144) mmol/L Sodium 141 (136-145) mmol/L POC Potassium (3.3-5.0) mmol/L Potassium 3.5 (3.5-5.1) mmol/L POC Chloride (101-112) mmol/L Chloride 111 H (98-107) mmol/L Carbon Dioxide 23 (21-32) mmol/L POC Total CO2 (24-31) mmol/L Anion Gap 8.0 (3-11) POC Anion Gap (16-25) mmol/L POC BUN (7-18) mg/dl BUN 30 H (7-18) mg/dl Creatinine 2.09 H (0.6-1.4) mg/dl POC Creatinine (0.6-1.3) mg/dl Est Cr Clr Drug Dosing 25.6 Est GFR ( Amer) 33.2 ml/min Est GFR (Non-Af Amer) 28.6 ml/min BUN/Creatinine Ratio 14.3 (10-20) Glucose 124 H (70-99) mg/dl POC Glucose 133 H (70-99) mg/dl POC Glucose (other) (70-99) mg/dl Lactate (0.4-2.0) mmol/L Calcium 8.0 L (8.5-10.1) mg/dl POC Ioniz Calcium Kia (1.12-1.32) mmol/l Phosphorus (2.5-4.9) mg/dl Magnesium (1.8-2.4) mg/dl Total Bilirubin (0.2-1) mg/dl AST (15-37) U/L ALT (12-78) U/L Alkaline Phosphatase (45-117) U/L Troponin I 0.213 H* (0-0.045) ng/ml Total Protein (6.4-8.2) gm/dl Albumin (3.4-5.0) gm/dl Globulin (2.5-4.0) gm/dl Albumin/Globulin Ratio (0.9-2) Lipase (73-393) U/L Beta-Hydroxybutyric Acd (0.2-2.81) mg/dl Procalcitonin (0-0.5) ng/ml Urine Color Yellow Urine Appearance Cloudy A (Clear) Urine pH 5.0 (4.5-7.5) Ur Specific [place] 1.011 (1.000-1.030) Urine Protein 2+ H (Negative) Urine Glucose (UA) Negative (Negative) Urine Ketones Negative (Negative) Urine Blood 3+ H (Negative) Urine Nitrite Positive A (Negative) Urine Bilirubin Negative (Negative) Urine Urobilinogen Negative (Negative) Ur Leukocyte Esterase 2+ H (Negative) Urine WBC (Auto) >30 H (0-5) /hpf Urine RBC (Auto) 0-4 (0-4) /hpf U Hyaline Cast (Auto) 5-10 H (0-5) /lpf U Epithel Cells (Auto) 5-10 H (0-5) /lpf Urine Bacteria (Auto) Negative (Negative) Amorphous Sediment Present A (None Prsent) Granular Casts 1-5 H (0) /lpf WBC Casts 5-10 H (0) /lpf Urine Yeast Not Reportable Nasal Screen MRSA (PCR) (Negative) Anaplasma Smear Lyme Disease IgG Ab (Negative) Lyme Disease IgM Ab (Negative) COVID-19 Eval Order SARS-CoV-2 (PCR) (Negative) Blood Type Antibody Screen 06/09/21 06/09/21 06/09/21 Range/Units 08:30 08:25 07:21 WBC (4.8-10.8) K/uL RBC (4.7-6.1) M/uL Hgb (14.0-18.0) g/dL POC Hgb (14.0-18.0) g/dl Hct (42-52) % POC Hct (42-52) % MCV (80-100) fL MCH (25-34) pg MCHC (32-36) g/dL RDW Std Deviation (36.4-46.3) fL RDW Coeff of Familia (11.5-14.5) % Plt Count (130-400) K/uL MPV (7.4-10.4) fL Immature Gran % (Auto) % Neut % (Auto) % Lymph % (Auto) % [place] % (Auto) % Eos % (Auto) % Baso % (Auto) % Neut # (Auto) (1.4-6.5) K/uL Lymph # (Auto) (1.2-3.4) K/uL [place] # (Auto) (0.11-0.59) K/uL Eos # (Auto) (0-0.5) K/uL Baso # (Auto) (0-0.2) K/uL Immature Gran # (Auto) (0.00-0.02) K/uL Neutrophils % (Manual) % Lymphocytes % (Manual) % Monocytes % (Manual) % Neutrophils # (Manual) (1.4-6.5) K/uL Total Absolute Neuts (1.4-6.5) K/uL Lymphocytes # (Manual) (1.2-3.4) K/uL Total Abs Lymphocytes (1.2-3.4) K/uL Monocytes # (Manual) (0.11-0.59) K/uL Dohle Bodies Platelet Estimate (Normal) Giant Platelets Polychromasia PT (9.0-12.0) Seconds INR (0.9-1.1) APTT (21.0-31.0) Seconds PTT Ratio POC Sodium (135-144) mmol/L Sodium (136-145) mmol/L POC Potassium (3.3-5.0) mmol/L Potassium (3.5-5.1) mmol/L POC Chloride (101-112) mmol/L Chloride (98-107) mmol/L Carbon Dioxide (21-32) mmol/L POC Total CO2 (24-31) mmol/L Anion Gap (3-11) POC Anion Gap (16-25) mmol/L POC BUN (7-18) mg/dl BUN (7-18) mg/dl Creatinine (0.6-1.4) mg/dl POC Creatinine (0.6-1.3) mg/dl Est Cr Clr Drug Dosing Est GFR ( Amer) ml/min Est GFR (Non-Af Amer) ml/min BUN/Creatinine Ratio (10-20) Glucose (70-99) mg/dl POC Glucose 154 H (70-99) mg/dl POC Glucose (other) (70-99) mg/dl Lactate (0.4-2.0) mmol/L Calcium (8.5-10.1) mg/dl POC Ioniz Calcium Kia (1.12-1.32) mmol/l Phosphorus (2.5-4.9) mg/dl Magnesium (1.8-2.4) mg/dl Total Bilirubin (0.2-1) mg/dl AST (15-37) U/L ALT (12-78) U/L Alkaline Phosphatase (45-117) U/L Troponin I (0-0.045) ng/ml Total Protein (6.4-8.2) gm/dl Albumin (3.4-5.0) gm/dl Globulin (2.5-4.0) gm/dl Albumin/Globulin Ratio (0.9-2) Lipase (73-393) U/L Beta-Hydroxybutyric Acd (0.2-2.81) mg/dl Procalcitonin (0-0.5) ng/ml Urine Color Urine Appearance (Clear) Urine pH (4.5-7.5) Ur Specific [place] (1.000-1.030) Urine Protein (Negative) Urine Glucose (UA) (Negative) Urine Ketones (Negative) Urine Blood (Negative) Urine Nitrite (Negative) Urine Bilirubin (Negative) Urine Urobilinogen (Negative) Ur Leukocyte Esterase (Negative) Urine WBC (Auto) (0-5) /hpf Urine RBC (Auto) (0-4) /hpf U Hyaline Cast (Auto) (0-5) /lpf U Epithel Cells (Auto) (0-5) /lpf Urine Bacteria (Auto) (Negative) Amorphous Sediment (None Prsent) Granular Casts (0) /lpf WBC Casts (0) /lpf Urine Yeast Nasal Screen MRSA (PCR) Negative (Negative) Anaplasma Smear Lyme Disease IgG Ab (Negative) Lyme Disease IgM Ab (Negative) COVID-19 Eval Order SARS-CoV-2 (PCR) (Negative) Blood Type O Positive Antibody Screen NEGATIVE 06/09/21 06/09/21 06/09/21 Range/Units 05:38 05:34 00:01 WBC 23.70 H D (4.8-10.8) K/uL RBC 2.91 L (4.7-6.1) M/uL Hgb 7.6 L (14.0-18.0) g/dL POC Hgb (14.0-18.0) g/dl Hct 24.3 L (42-52) % POC Hct (42-52) % MCV 83.5 (80-100) fL MCH 26.1 (25-34) pg MCHC 31.3 L (32-36) g/dL RDW Std Deviation 53.1 H (36.4-46.3) fL RDW Coeff of Familia 19.1 H (11.5-14.5) % Plt Count 81 L (130-400) K/uL MPV 12.3 H (7.4-10.4) fL Immature Gran % (Auto) % Neut % (Auto) % Lymph % (Auto) % [place] % (Auto) % Eos % (Auto) % Baso % (Auto) % Neut # (Auto) (1.4-6.5) K/uL Lymph # (Auto) (1.2-3.4) K/uL [place] # (Auto) (0.11-0.59) K/uL Eos # (Auto) (0-0.5) K/uL Baso # (Auto) (0-0.2) K/uL Immature Gran # (Auto) (0.00-0.02) K/uL Neutrophils % (Manual) 93.0 % Lymphocytes % (Manual) 0.9 % Monocytes % (Manual) 6.1 % Neutrophils # (Manual) 22.04 H (1.4-6.5) K/uL Total Absolute Neuts 22.04 H (1.4-6.5) K/uL Lymphocytes # (Manual) 0.21 L (1.2-3.4) K/uL Total Abs Lymphocytes 0.21 L (1.2-3.4) K/uL Monocytes # (Manual) 1.45 H (0.11-0.59) K/uL Dohle Bodies 1+ Platelet Estimate Decreased L (Normal) Giant Platelets Polychromasia 1+ PT (9.0-12.0) Seconds INR (0.9-1.1) APTT (21.0-31.0) Seconds PTT Ratio POC Sodium (135-144) mmol/L Sodium 140 (136-145) mmol/L POC Potassium (3.3-5.0) mmol/L Potassium 3.1 L (3.5-5.1) mmol/L POC Chloride (101-112) mmol/L Chloride 112 H (98-107) mmol/L Carbon Dioxide 20 L (21-32) mmol/L POC Total CO2 (24-31) mmol/L Anion Gap 8.0 (3-11) POC Anion Gap (16-25) mmol/L POC BUN (7-18) mg/dl BUN 28 H (7-18) mg/dl Creatinine 2.25 H (0.6-1.4) mg/dl POC Creatinine (0.6-1.3) mg/dl Est Cr Clr Drug Dosing 23.8 Est GFR ( Amer) 30.3 ml/min Est GFR (Non-Af Amer) 26.2 ml/min BUN/Creatinine Ratio 12.5 (10-20) Glucose 168 H (70-99) mg/dl POC Glucose (70-99) mg/dl POC Glucose (other) (70-99) mg/dl Lactate 1.8 (0.4-2.0) mmol/L Calcium 8.2 L (8.5-10.1) mg/dl POC Ioniz Calcium Kia (1.12-1.32) mmol/l Phosphorus 2.8 (2.5-4.9) mg/dl Magnesium (1.8-2.4) mg/dl Total Bilirubin (0.2-1) mg/dl AST (15-37) U/L ALT (12-78) U/L Alkaline Phosphatase (45-117) U/L Troponin I 0.159 H* (0-0.045) ng/ml Total Protein (6.4-8.2) gm/dl Albumin (3.4-5.0) gm/dl Globulin (2.5-4.0) gm/dl Albumin/Globulin Ratio (0.9-2) Lipase (73-393) U/L Beta-Hydroxybutyric Acd 1.28 (0.2-2.81) mg/dl Procalcitonin (0-0.5) ng/ml Urine Color Urine Appearance (Clear) Urine pH (4.5-7.5) Ur Specific [place] (1.000-1.030) Urine Protein (Negative) Urine Glucose (UA) (Negative) Urine Ketones (Negative) Urine Blood (Negative) Urine Nitrite (Negative) Urine Bilirubin (Negative) Urine Urobilinogen (Negative) Ur Leukocyte Esterase (Negative) Urine WBC (Auto) (0-5) /hpf Urine RBC (Auto) (0-4) /hpf U Hyaline Cast (Auto) (0-5) /lpf U Epithel Cells (Auto) (0-5) /lpf Urine Bacteria (Auto) (Negative) Amorphous Sediment (None Prsent) Granular Casts (0) /lpf WBC Casts (0) /lpf Urine Yeast Nasal Screen MRSA (PCR) (Negative) Anaplasma Smear See Comment Lyme Disease IgG Ab (Negative) Lyme Disease IgM Ab (Negative) COVID-19 Eval Order SARS-CoV-2 (PCR) (Negative) Blood Type Antibody Screen 06/08/21 06/08/21 06/08/21 Range/Units 22:18 22:17 22:17 WBC (4.8-10.8) K/uL RBC (4.7-6.1) M/uL Hgb (14.0-18.0) g/dL POC Hgb 9.2 L (14.0-18.0) g/dl Hct (42-52) % POC Hct 27 L (42-52) % MCV (80-100) fL MCH (25-34) pg MCHC (32-36) g/dL RDW Std Deviation (36.4-46.3) fL RDW Coeff of Familia (11.5-14.5) % Plt Count (130-400) K/uL MPV (7.4-10.4) fL Immature Gran % (Auto) % Neut % (Auto) % Lymph % (Auto) % [place] % (Auto) % Eos % (Auto) % Baso % (Auto) % Neut # (Auto) (1.4-6.5) K/uL Lymph # (Auto) (1.2-3.4) K/uL [place] # (Auto) (0.11-0.59) K/uL Eos # (Auto) (0-0.5) K/uL Baso # (Auto) (0-0.2) K/uL Immature Gran # (Auto) (0.00-0.02) K/uL Neutrophils % (Manual) % Lymphocytes % (Manual) % Monocytes % (Manual) % Neutrophils # (Manual) (1.4-6.5) K/uL Total Absolute Neuts (1.4-6.5) K/uL Lymphocytes # (Manual) (1.2-3.4) K/uL Total Abs Lymphocytes (1.2-3.4) K/uL Monocytes # (Manual) (0.11-0.59) K/uL Dohle Bodies Platelet Estimate (Normal) Giant Platelets Polychromasia PT (9.0-12.0) Seconds INR (0.9-1.1) APTT (21.0-31.0) Seconds PTT Ratio POC Sodium 137 (135-144) mmol/L Sodium (136-145) mmol/L POC Potassium 3.5 (3.3-5.0) mmol/L Potassium (3.5-5.1) mmol/L POC Chloride 105 (101-112) mmol/L Chloride (98-107) mmol/L Carbon Dioxide (21-32) mmol/L POC Total CO2 17 L (24-31) mmol/L Anion Gap (3-11) POC Anion Gap 20.0 (16-25) mmol/L POC BUN 28 H (7-18) mg/dl BUN (7-18) mg/dl Creatinine (0.6-1.4) mg/dl POC Creatinine 2.5 H (0.6-1.3) mg/dl Est Cr Clr Drug Dosing Est GFR ( Amer) ml/min Est GFR (Non-Af Amer) ml/min BUN/Creatinine Ratio (10-20) Glucose (70-99) mg/dl POC Glucose (70-99) mg/dl POC Glucose (other) 210 H (70-99) mg/dl Lactate (0.4-2.0) mmol/L Calcium (8.5-10.1) mg/dl POC Ioniz Calcium Kia 1.16 (1.12-1.32) mmol/l Phosphorus (2.5-4.9) mg/dl Magnesium (1.8-2.4) mg/dl Total Bilirubin (0.2-1) mg/dl AST (15-37) U/L ALT (12-78) U/L Alkaline Phosphatase (45-117) U/L Troponin I (0-0.045) ng/ml Total Protein (6.4-8.2) gm/dl Albumin (3.4-5.0) gm/dl Globulin (2.5-4.0) gm/dl Albumin/Globulin Ratio (0.9-2) Lipase (73-393) U/L Beta-Hydroxybutyric Acd (0.2-2.81) mg/dl Procalcitonin (0-0.5) ng/ml Urine Color Urine Appearance (Clear) Urine pH (4.5-7.5) Ur Specific [place] (1.000-1.030) Urine Protein (Negative) Urine Glucose (UA) (Negative) Urine Ketones (Negative) Urine Blood (Negative) Urine Nitrite (Negative) Urine Bilirubin (Negative) Urine Urobilinogen (Negative) Ur Leukocyte Esterase (Negative) Urine WBC (Auto) (0-5) /hpf Urine RBC (Auto) (0-4) /hpf U Hyaline Cast (Auto) (0-5) /lpf U Epithel Cells (Auto) (0-5) /lpf Urine Bacteria (Auto) (Negative) Amorphous Sediment (None Prsent) Granular Casts (0) /lpf WBC Casts (0) /lpf Urine Yeast Nasal Screen MRSA (PCR) (Negative) Anaplasma Smear Lyme Disease IgG Ab (Negative) Lyme Disease IgM Ab (Negative) COVID-19 Eval Order Covid19 at [facility] SARS-CoV-2 (PCR) NEGATIVE (Negative) Blood Type Antibody Screen 06/08/21 06/08/21 06/08/21 Range/Units 22:14 22:14 22:14 WBC (4.8-10.8) K/uL RBC (4.7-6.1) M/uL Hgb (14.0-18.0) g/dL POC Hgb (14.0-18.0) g/dl Hct (42-52) % POC Hct (42-52) % MCV (80-100) fL MCH (25-34) pg MCHC (32-36) g/dL RDW Std Deviation (36.4-46.3) fL RDW Coeff of Familia (11.5-14.5) % Plt Count (130-400) K/uL MPV (7.4-10.4) fL Immature Gran % (Auto) % Neut % (Auto) % Lymph % (Auto) % [place] % (Auto) % Eos % (Auto) % Baso % (Auto) % Neut # (Auto) (1.4-6.5) K/uL Lymph # (Auto) (1.2-3.4) K/uL [place] # (Auto) (0.11-0.59) K/uL Eos # (Auto) (0-0.5) K/uL Baso # (Auto) (0-0.2) K/uL Immature Gran # (Auto) (0.00-0.02) K/uL Neutrophils % (Manual) % Lymphocytes % (Manual) % Monocytes % (Manual) % Neutrophils # (Manual) (1.4-6.5) K/uL Total Absolute Neuts (1.4-6.5) K/uL Lymphocytes # (Manual) (1.2-3.4) K/uL Total Abs Lymphocytes (1.2-3.4) K/uL Monocytes # (Manual) (0.11-0.59) K/uL Dohle Bodies Platelet Estimate (Normal) Giant Platelets Polychromasia PT (9.0-12.0) Seconds INR (0.9-1.1) APTT (21.0-31.0) Seconds PTT Ratio POC Sodium (135-144) mmol/L Sodium 138 (136-145) mmol/L POC Potassium (3.3-5.0) mmol/L Potassium 3.4 L (3.5-5.1) mmol/L POC Chloride (101-112) mmol/L Chloride 106 (98-107) mmol/L Carbon Dioxide 20 L (21-32) mmol/L POC Total CO2 (24-31) mmol/L Anion Gap 12.0 H (3-11) POC Anion Gap (16-25) mmol/L POC BUN (7-18) mg/dl BUN 30 H (7-18) mg/dl Creatinine 2.49 H (0.6-1.4) mg/dl POC Creatinine (0.6-1.3) mg/dl Est Cr Clr Drug Dosing Not Reportable Est GFR ( Amer) 26.8 ml/min Est GFR (Non-Af Amer) 23.2 ml/min BUN/Creatinine Ratio 12.1 (10-20) Glucose 204 H (70-99) mg/dl POC Glucose (70-99) mg/dl POC Glucose (other) (70-99) mg/dl Lactate 2.7 H* (0.4-2.0) mmol/L Calcium 9.2 (8.5-10.1) mg/dl POC Ioniz Calcium Kia (1.12-1.32) mmol/l Phosphorus (2.5-4.9) mg/dl Magnesium 2.0 (1.8-2.4) mg/dl Total Bilirubin 1.2 H (0.2-1) mg/dl AST 23 (15-37) U/L ALT 20 (12-78) U/L Alkaline Phosphatase 104 (45-117) U/L Troponin I 0.026 (0-0.045) ng/ml Total Protein 7.8 (6.4-8.2) gm/dl Albumin 3.3 L (3.4-5.0) gm/dl Globulin 4.5 H (2.5-4.0) gm/dl Albumin/Globulin Ratio 0.7 L (0.9-2) Lipase 59 L (73-393) U/L Beta-Hydroxybutyric Acd (0.2-2.81) mg/dl Procalcitonin 13.63 H (0-0.5) ng/ml Urine Color Urine Appearance (Clear) Urine pH (4.5-7.5) Ur Specific [place] (1.000-1.030) Urine Protein (Negative) Urine Glucose (UA) (Negative) Urine Ketones (Negative) Urine Blood (Negative) Urine Nitrite (Negative) Urine Bilirubin (Negative) Urine Urobilinogen (Negative) Ur Leukocyte Esterase (Negative) Urine WBC (Auto) (0-5) /hpf Urine RBC (Auto) (0-4) /hpf U Hyaline Cast (Auto) (0-5) /lpf U Epithel Cells (Auto) (0-5) /lpf Urine Bacteria (Auto) (Negative) Amorphous Sediment (None Prsent) Granular Casts (0) /lpf WBC Casts (0) /lpf Urine Yeast Nasal Screen MRSA (PCR) (Negative) Anaplasma Smear Lyme Disease IgG Ab (Negative) Lyme Disease IgM Ab (Negative) COVID-19 Eval Order SARS-CoV-2 (PCR) (Negative) Blood Type Antibody Screen 06/08/21 06/08/21 Range/Units 22:14 22:14 WBC 6.57 (4.8-10.8) K/uL RBC 3.57 L (4.7-6.1) M/uL Hgb 9.0 L (14.0-18.0) g/dL POC Hgb (14.0-18.0) g/dl Hct 29.4 L (42-52) % POC Hct (42-52) % MCV 82.4 (80-100) fL MCH 25.2 (25-34) pg MCHC 30.6 L (32-36) g/dL RDW Std Deviation 49.8 H (36.4-46.3) fL RDW Coeff of Familia 18.7 H (11.5-14.5) % Plt Count 84 L (130-400) K/uL MPV (7.4-10.4) fL Immature Gran % (Auto) 0.6 % Neut % (Auto) 89.1 % Lymph % (Auto) 4.7 % [place] % (Auto) 5.6 % Eos % (Auto) 0.0 % Baso % (Auto) 0.0 % Neut # (Auto) 5.85 (1.4-6.5) K/uL Lymph # (Auto) 0.31 L (1.2-3.4) K/uL [place] # (Auto) 0.37 (0.11-0.59) K/uL Eos # (Auto) 0.00 (0-0.5) K/uL Baso # (Auto) 0.00 (0-0.2) K/uL Immature Gran # (Auto) 0.04 H (0.00-0.02) K/uL Neutrophils % (Manual) % Lymphocytes % (Manual) % Monocytes % (Manual) % Neutrophils # (Manual) (1.4-6.5) K/uL Total Absolute Neuts (1.4-6.5) K/uL Lymphocytes # (Manual) (1.2-3.4) K/uL Total Abs Lymphocytes (1.2-3.4) K/uL Monocytes # (Manual) (0.11-0.59) K/uL Dohle Bodies Platelet Estimate Decreased L (Normal) Giant Platelets 1+ Polychromasia 1+ PT 10.9 (9.0-12.0) Seconds INR 1.1 (0.9-1.1) APTT 22.2 (21.0-31.0) Seconds PTT Ratio 0.8 POC Sodium (135-144) mmol/L Sodium (136-145) mmol/L POC Potassium (3.3-5.0) mmol/L Potassium (3.5-5.1) mmol/L POC Chloride (101-112) mmol/L Chloride (98-107) mmol/L Carbon Dioxide (21-32) mmol/L POC Total CO2 (24-31) mmol/L Anion Gap (3-11) POC Anion Gap (16-25) mmol/L POC BUN (7-18) mg/dl BUN (7-18) mg/dl Creatinine (0.6-1.4) mg/dl POC Creatinine (0.6-1.3) mg/dl Est Cr Clr Drug Dosing Est GFR ( Amer) ml/min Est GFR (Non-Af Amer) ml/min BUN/Creatinine Ratio (10-20) Glucose (70-99) mg/dl POC Glucose (70-99) mg/dl POC Glucose (other) (70-99) mg/dl Lactate (0.4-2.0) mmol/L Calcium (8.5-10.1) mg/dl POC Ioniz Calcium Kia (1.12-1.32) mmol/l Phosphorus (2.5-4.9) mg/dl Magnesium (1.8-2.4) mg/dl Total Bilirubin (0.2-1) mg/dl AST (15-37) U/L ALT (12-78) U/L Alkaline Phosphatase (45-117) U/L Troponin I (0-0.045) ng/ml Total Protein (6.4-8.2) gm/dl Albumin (3.4-5.0) gm/dl Globulin (2.5-4.0) gm/dl Albumin/Globulin Ratio (0.9-2) Lipase (73-393) U/L Beta-Hydroxybutyric Acd (0.2-2.81) mg/dl Procalcitonin (0-0.5) ng/ml Urine Color Urine Appearance (Clear) Urine pH (4.5-7.5) Ur Specific [place] (1.000-1.030) Urine Protein (Negative) Urine Glucose (UA) (Negative) Urine Ketones (Negative) Urine Blood (Negative) Urine Nitrite (Negative) Urine Bilirubin (Negative) Urine Urobilinogen (Negative) Ur Leukocyte Esterase (Negative) Urine WBC (Auto) (0-5) /hpf Urine RBC (Auto) (0-4) /hpf U Hyaline Cast (Auto) (0-5) /lpf U Epithel Cells (Auto) (0-5) /lpf Urine Bacteria (Auto) (Negative) Amorphous Sediment (None Prsent) Granular Casts (0) /lpf WBC Casts (0) /lpf Urine Yeast Nasal Screen MRSA (PCR) (Negative) Anaplasma Smear Lyme Disease IgG Ab (Negative) Lyme Disease IgM Ab (Negative) COVID-19 Eval Order SARS-CoV-2 (PCR) (Negative) Blood Type Antibody Screen Diagnostic Findings Impressions Chest X-Ray 06/08/21 22:23 SINGLE VIEW CHEST CLINICAL HISTORY: Sepsis. FINDINGS: 2 AP, portable, upright chest radiographs are compared to study dated 07/08/2016 and correlated with chest CT dated 09/20/2015. Surgical clips project over the mediastinum. The heart is enlarged noting atherosclerotic calcification of the thoracic aorta. The pulmonary vasculature is noncongested. Emphysema and chronic interstitial thickening is similar to previous. No airspace consolidation or large pleural effusion is identified. Scarring/atelectasis is noted at the lung bases. No pneumothorax is seen. The skeletal structures are osteopenic. The bony thorax is grossly intact. IMPRESSION: Cardiomegaly and emphysema with no acute cardiopulmonary abnormality. ACT 112: Negative or not required by law. Electronically signed by: Denis Levin M.D. 06/09/2021 7:40 AM Abdomen/Pelvis CT 06/09/21 01:45 CT SCAN OF THE ABDOMEN AND PELVIS WITHOUT IV CONTRAST CLINICAL HISTORY: Generalized abdominal pain. COMPARISON STUDY: Abdominal CT dated 10/09/2012. TECHNIQUE: CT scan of the abdomen and pelvis is performed from the lung bases to the proximal femora. Images are reviewed in the axial, sagittal, and coronal planes. IV contrast was not administered for this examination. Note that the examination is suboptimal without IV contrast. Oral contrast was utilized. The examination is compromised by motion artifact. A dose lowering technique was utilized adhering to the principles of ALARA. CT DOSE: 284.41 mGy.cm FINDINGS: Lung bases: The heart is enlarged and noting a small pericardial effusion. There are coronary artery calcifications. There is decreased attenuation of the cardiac blood pool as compared to the myocardium suggesting anemia. Dependent airspace opacities are seen at both lung bases. No pleural effusion is identified. Findings suggest an esophageal pull-through procedure. Liver: The unenhanced liver is normal in size, contour, and attenuation. There is no intrahepatic biliary ductal dilatation. A 1.6 cm cyst is noted in the right lobe. Gallbladder: Contracted versus surgically absent. Spleen: Normal in size and attenuation. Pancreas: The unenhanced pancreas is grossly unremarkable but not well evaluated. Adrenal glands: Nodular thickening of the left adrenal gland is similar to previous. The right adrenal gland is grossly unremarkable. Kidneys: The unenhanced kidneys demonstrate mild cortical atrophy and are without hydronephrosis. There are no renal calculi identified. Foci of cortical scarring are noted in the left kidney. A 1.8 cm solid mass lesion is again seen arising from lower pole of the right kidney. This has increased in size as compared to 2013 and remains highly concerning for a renal neoplasm. Cysts are suggested in the left kidney. Abdominal vasculature: There is moderate to advanced atherosclerotic calcification and mild ectasia of the abdominal aorta. Bowel: There is mild to moderate colonic diverticulosis without CT evidence of acute diverticulitis. No bowel obstruction is identified. Enteric contrast reaches the left colon. The appendix is well-visualized and normal. Peritoneum: There is no intraperitoneal free air or abdominal ascites. Lymphadenopathy: None. Pelvic viscera: The prostate gland is enlarged and heterogeneous noting median lobe hypertrophy. The bladder wall appears thickened and trabeculated indicating chronic outlet obstruction. The bladder is moderately distended. Skeletal structures: The skeletal structures are osteopenic. There is moderate to advanced lumbosacral spondylosis. No lytic or blastic lesions are seen. IMPRESSION: 1. Suboptimal examination without IV contrast. There is also significant motion artifact. 2. No acute infectious or inflammatory findings are identified in the abdomen or pelvis. 3. Bibasilar airspace opacities are nonspecific. This could represent scarring/atelectasis versus an infectious/inflammatory pneumonitis. Clinical correlation will be required. 4. There is a 1.8 cm solid exophytic mass lesion again seen arising from the lower pole of the right kidney. This has increased in size as compared to 10/09/2012 and was shown to represent a contrast enhancing lesion at the time. Renal cell carcinoma remains the diagnosis of exclusion. 5. Cardiomegaly. 6. There is evidence of a previous gastric pull-through procedure. 7. Additional findings as above. ACT 112: Negative or not required by law. Electronically signed by: Denis Levin M.D. 06/09/2021 8:03 AM Medications Administered Current Inpatient Medications Acetaminophen (Acetaminophen 325 Mg Tab) 650 mg PO Q4H PRN PRN Reason: Pain or Fever Stop: 07/09/21 04:56 Amiodarone HCl (Amiodarone 200 Mg Tab) 200 mg PO DAILY REGINE Stop: 07/09/21 08:59 Last Admin: 06/09/21 08:21 Dose: 200 mg Documented by: Apixaban (Apixaban 2.5 Mg Tab) 2.5 mg PO BID REGINE Stop: 07/09/21 08:59 Last Admin: 06/09/21 08:21 Dose: 2.5 mg Documented by: Dextrose (Dextrose 50% 50 Ml Syringe) 25 - 50 ml IV UD PRN; Protocol PRN Reason: Hypoglycemia Protocol Stop: 07/09/21 04:56 Ferrous Sulfate (Ferrous Sulfate 325 Mg Tab) 325 mg PO QDL REGINE Stop: 07/09/21 11:29 Last Admin: 06/09/21 12:08 Dose: 325 mg Documented by: Glucagon (Glucagon For Inj 1 Mg Vial) 1 mg SQ UD PRN; Protocol PRN Reason: Hypoglycemia Protocol Stop: 07/09/21 04:56 Glucose (Glucose 10 Tabs/Tube) 4 - 8 tabs PO UD PRN; Protocol PRN Reason: Hypoglycemia Protocol Stop: 07/09/21 04:56 Glucose (Glucose 40% Gel 15 Gm Tube) 15 - 30 gm PO UD PRN; Protocol PRN Reason: Hypoglycemia Protocol Stop: 07/09/21 04:56 Ertapenem 500 mg/ Sodium (Chloride) 55 mls @ 100 mls/hr IV Q24H REGINE; Protocol Stop: 06/11/21 21:59 Insulin Aspart (Insulin Aspart 100 Units/Ml 3 Ml Pen) 0 units SC ACHS REGINE Stop: 07/09/21 07:29 Last Admin: 06/09/21 17:22 Dose: Not Given Documented by: Insulin Glargine (Insulin Glargine Solostar 100 Units/Ml 3 Ml Pen) 5 units SC BID REGINE Stop: 07/09/21 08:59 Last Admin: 06/09/21 09:45 Dose: 5 units Documented by: Miscellaneous (Carbohydrates For Hypoglycemia ) 15 - 30 gm PO UD PRN PRN Reason: Hypoglycemia Protocol Stop: 07/09/21 04:56 Polyethylene Glycol (Polyethylene (Miralax) 17 Gm Pack) 17 gm PO DAILY PRN PRN Reason: Constipation Stop: 07/09/21 04:56 Resident Activity Tracking Resident Involvement: Resident Care Provided Care Provided: Adult Hospital Medicine
[2021-06-09] MEDS: FERROUS SULFATE 325 MG TAB PO SCH (12:08)
[2021-06-09 12:10] LABS: Mean Corpuscular Hgb Conc 30.5 g/dL (32-36)
[2021-06-09 12:10] LABS: Appearance Urine Cloudy (Clear); Bacteria Urine Automated Negative (Negative); Bilirubin Urine Negative (Negative); Blood Urine 3+ (Negative); Color Urine Yellow; Glucose Urine UA Negative (Negative); Ketones Urine Negative (Negative); Leukocyte Esterase Urine 2+ (Negative); Nitrite Urine Positive (Negative); Protein Urine 2+ (Negative); RBC Urine Automated 0-4 /hpf (0-4); Specific Gravity Urine 1.011 (1.000-1.030); Urobilinogen Urine Negative (Negative); WBC Urine Automated >30 /hpf (0-5)
[2021-06-09 12:16] LABS: Hematocrit (blood only) 24.9 % (42-52); Hemoglobin 7.6 g/dL (14.0-18.0); Mean Corpuscular Hemoglobin 25.6 pg (25-34); Mean Corpuscular Volume 83.8 fL (80-100); RDW Coefficient of Variation 19.5 % (11.5-14.5); RDW Standard Deviation 53.9 fL (36.4-46.3); Red Blood Count 2.97 M/uL (4.7-6.1); White Blood Count 22.08 K/uL (4.8-10.8)
[2021-06-09 12:28] LABS: ALC (manual) 1.15 K/uL (1.2-3.4); ANC (manual) 20.36 K/uL (1.4-6.5); Lymphocytes # (manual) 1.15 K/uL (1.2-3.4); Lymphocytes % (manual) 5.2 %; Monocytes # (manual) 0.57 K/uL (0.11-0.59); Monocytes % (manual) 2.6 %; Neutrophils # (manual) 20.36 K/uL (1.4-6.5); Neutrophils % (manual) 92.2 %; Platelet Count 72 K/uL (130-400); Platelet Estimate Decreased (Normal)
[2021-06-09 12:29] LABS: BUN Creatinine Ratio 14.3 (10-20); Creatinine Clr Calc Pharmacy 25.6 ml/min; Est GFR (African American) 33.2 ml/min; Est GFR (Non-African American) 28.6 ml/min; Potassium 3.5 mmol/L (3.5-5.1)
[2021-06-09 12:37] LABS: Amorphous Sediment Urine Present (None Prsent)
[2021-06-09 12:40] LABS: Troponin I 0.213 ng/ml (0-0.045)
[2021-06-09 12:59] LABS: Lyme Ab IgG w/WB Rflx Negative (Negative)
[2021-06-09 13:01] LABS: Lyme Ab IgM w/WB Rflx Negative (Negative)
--- NOTE | 2021-06-09 13:48 | Electrocardiogram Report ---
Test Reason : Blood Pressure : / mmHG Vent. Rate : 110 BPM Atrial Rate : 122 BPM P-R Int : 000 ms QRS Dur : 088 ms QT Int : 384 ms P-R-T Axes : 000 027 042 degrees QTc Int : 519 ms Atrial fibrillation with rapid ventricular response Low voltage QRS Abnormal ECG When compared with ECG of 08-JUN-2021 22:07, HR has decreased by [address] no longer depressed in Inferior leads ST no longer depressed in Lateral leads Rate related bbb no longer present Confirmed by Manohar Bailey ([id number]) on 06/09/2021 1:47:50 PM Referred By: REFERRED SELF Confirmed By:Manohar Bailey
--- NOTE | 2021-06-09 14:02 | XCELERA ---
[id number]
--- NOTE | 2021-06-09 18:18 | Cardiology Consultation ---
Date of Consultation June 09, 2021 Assessment & Plan (1) Atrial fibrillation with RVR: Patient with known history of paroxysmal atrial fibrillation who is on chronic amiodarone for rhythm control, metoprolol for breakthrough rate control, and apixaban for anticoagulation who was admitted with acute medical illness (gastroenteritis?) and developed atrial fibrillation with rapid ventricular response. He remains in atrial fibrillation but his rate is much better controlled currently. Agree with continuation of amiodarone, could use doses of IV metoprolol if needed for interim rate control, but would add back his oral metoprolol as soon as his blood pressure allows. (2) Demand ischemia: Mild troponin elevation in the absence of chest pain or ischemic ECG changes in patient with advanced age, marked anemia, metabolic abnormalities, etc. is most consistent with supply/demand mismatch (demand ischemia). Treatment is to address the underlying medical problems as able while controlling ventricular rate response to atrial fibrillation. No additional anticoagulation beyond his apixaban is necessary, as this is unlikely to be a thrombotic event. 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 (5) Acute on chronic renal insufficiency: Currently, renal function is improving overnight with fluid resuscitation. Continue to monitor closely. History of Present Illness Reason for Consultation: Afib minorly elevated troponin Requesting Physician: Jeremy Cespedes DO Attending Physician: Merlyn Hyatt MD History of Present Illness 81-year-old man with chronic diastolic congestive heart failure, paroxysmal atrial fibrillation (amiodarone/metoprolol/apixaban), and resolved tachycardia due to cardiomyopathy who presented to the ER today with nonspecific symptoms of weakness and diarrhea and was found to have atrial fibrillation with rapid ventricular response. His last episode of atrial fibrillation was nearly 6 months ago and was transient. In general, he has maintained sinus rhythm on amiodarone and follows regularly with Dr. Shi. Since admission he has received IV fluid resuscitation, oral amiodarone, and 5 mg IV metoprolol. His ventricular rate has been reasonably controlled (90-110 bpm) given his clinical status (anemic, transiently hypotensive, leukocytosis, renal insufficiency). At the time of my evaluation, patient denied any complaint at rest. He noted no chest pain, dyspnea, subjective palpitations, or lightheadedness. Allergies Allergy/AdvReac Type Severity Reaction Status Date / Time amoxicillin Allergy Mild RASH Verified 06/08/21 22:51 ampicillin Allergy Mild RED Verified 06/08/21 22:51 PIMPLES ON CHEST Penicillins Allergy Mild RASH Verified 06/08/21 22:51 Home Medications Medication Instructions Recorded Confirmed Type ferrous sulfate 325 mg (65 mg 325 mg PO QDL 04/29/20 06/08/21 History iron) tablet (Iron (ferrous sulfate)) apixaban 2.5 mg tablet (Eliquis) 2.5 mg PO BID #180 tab 07/25/20 06/08/21 Rx amiodarone 200 mg tablet 200 mg PO DAILY #90 tab 09/08/20 06/08/21 Rx amlodipine 5 mg tablet 5 mg PO DAILY #90 tab 10/13/20 06/08/21 Rx metoprolol succinate 50 mg 50 mg PO BID #180 tab 10/27/20 06/08/21 Rx tablet,extended release 24 hr Patient History Medical History (Updated 06/09/21 @ 18:45 by Manohar Bailey MD) Anemia Anxiety no meds Atrial fibrillation follows with Dr. 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 [place] History of esophagogastroduodenoscopy (EGD) History of prostate surgery prior to TURP History of tooth extraction all upper teeth History of transurethral resection of prostate Family History Mother No problems noted. Sister Colorectal cancer Breast cancer Other No family history of adverse response to anesthesia Denies family history of Ovarian cancer Prostate cancer Myocardial infarction Osteoarthritis Lung cancer Social History Smoking Status: Former smoker Tobacco Type: Cigarettes, Pipe and Cigars Age Started Using Tobacco: 9; Age Quit Using Tobacco: 71; packs per day: 0.5; Second Hand Exposure: No; Do You Dip or Chew Tobacco: No; Tobacco Cessation Education Requested by Patient: No Hx Alcohol Use: No Hx Substance Use: No Preferred Language: Emir[place] Communication Ability: Effective Visual Impairment: Diminished Hearing Ability: Hard of Hearing Credit Historian Required: Yes Beliefs That Will Affect Care: None marital status: Current Living Situation: Spouse current occupational status: employed current occupation: [employer] How many Children do You have: 1 Other Information That Helps Us Care for You: No Feels Safe at Home: Yes Safety Concerns: Feels Safe At This Time Childhood Exposure to Second-Hand Smoke: No caffeine: Yes (drinks coffee daily) Dental Care, Regularly: No Physical Activity Frequency: Daily Physical Activity Frequency Comment: is a landrum Seatbelt Use: always Sunscreen Use: No Assistive Devices: Denture - Upper Physical Exam Physical Exam: No distress. Afebrile but mildly diaphoretic. Normotensive currently. Pulse 90 bpm and irregular. Skin: no ecchymoses or generalized lesions. HEENT: unremarkable. Neck: Jugular venous pulse at the clavicle at 90 degrees, no carotid bruits. Lungs: Moderately decreased breath sounds, no obvious wheezing, crackles, or accessory muscle use. Cardiac: Irregular/borderline tachycardic rhythm. 2/6 apical holosystolic murmur rating to the axilla, no diastolic murmur or gallop. Abdomen: benign. Extremities: no edema, pulses intact. Neurologic: normal affect, quite hard of hearing, grossly nonfocal. Results & Data ([facility]) Vital Signs (Past 12 Hours) Vital Signs Temp Pulse Pulse Resp BP BP Pulse Ox 06/09/21 15:55 97.7 F 90 18 109/64 97 06/09/21 15:00 82 06/09/21 11:18 97.7 F 100 H 18 101/54 L 96 06/09/21 08:00 92 H 06/09/21 07:22 97.5 F L 75 19 148/64 H 98 06/09/21 07:13 98 H Laboratory Results Laboratory studies with troponin increasing from 0.026 to 0.213 overnight. Hemoglobin is 7.6 with a white count of 22,000 and platelet count of 72,000. Normal electrolytes, BUN 30, creatinine 2.09. Procalcitonin was 13.63. Lactate was 2.7 dropping to 1.8. Diagnostic Findings ECG this morning showed atrial fibrillation with rapid ventricular response, no significant ST deviation. Initial ECG had shown atrial fibrillation with a rapid ventricular response and inferior lateral ST depression as well as a probable rate related bundle branch block. Chest x-ray showed cardiomegaly and emphysema with no acute cardiopulmonary abnormality. Echocardiogram today showed EF 50 to 55% with moderate LVH, mild to moderate mitral regurgitation, trace tricuspid regurgitation with normal right ventricular systolic pressure. Compared with 2011 study, systolic function has improved (EF previously 30-35%) and mitral/tricuspid regurgitation appeared less severe.
[2021-06-09] MEDS: ERTAPENEM SODIUM 500 MG in SODIUM CHLORIDE 0.9% 50 ML IV SCH (21:45)
--- NOTE | 2021-06-10 04:45 | Billing Data ---
Date of Service June 09, 2021 Coding Level of Care Code 60038 Initial Inpt Care Lvl 3
[2021-06-10 07:12] LABS: Mean Corpuscular Hgb Conc 29.6 g/dL (32-36)
[2021-06-10 07:24] LABS: Hematocrit (blood only) 27.4 % (42-52); Hemoglobin 8.1 g/dL (14.0-18.0); Mean Corpuscular Hemoglobin 25.4 pg (25-34); Mean Corpuscular Volume 85.9 fL (80-100); RDW Coefficient of Variation 19.9 % (11.5-14.5); RDW Standard Deviation 58.2 fL (36.4-46.3); Red Blood Count 3.19 M/uL (4.7-6.1); White Blood Count 14.89 K/uL (4.8-10.8)
[2021-06-10 07:41] LABS: Platelet Count 82 K/uL (130-400); Platelet Estimate Decreased (Normal)
[2021-06-10 07:45] LABS: BUN Creatinine Ratio 17.5 (10-20); Calcium 8.5 mg/dl (8.5-10.1); Creatinine Clr Calc Pharmacy 29.6 ml/min; Est GFR (African American) 38.4 ml/min; Est GFR (Non-African American) 33.2 ml/min; Potassium 3.7 mmol/L (3.5-5.1)
[2021-06-10 08:00] LABS: Estimated Average Glucose 117 mg/dl; Hemoglobin A1C 5.7 % (4.5-5.6)
[2021-06-10] MEDS ORDERED: SODIUM CHLORIDE 0.9% 1000ML 1,000 ML IV SCH ×2 (08:00→18:00)
[2021-06-10] MEDS: INSULIN ASPART 100 UNITS/ML 3 ML PEN SC SCH ×4 (08:20→20:34)
[2021-06-10] MEDS: APIXABAN 2.5 MG TAB PO SCH ×2 (08:21→20:37)
[2021-06-10] MEDS: INSULIN GLARGINE SOLOSTAR 100 UNITS/ML 3 ML PEN SC SCH ×2 (08:21→20:37)
[2021-06-10] MEDS: AMIODARONE 200 MG TAB PO SCH (08:23)
[2021-06-10] MEDS: FERROUS SULFATE 325 MG TAB PO SCH (12:01)
--- NOTE | 2021-06-10 13:11 | Cardiology Progress Note ---
Date of Service June 10, 2021 Assessment & Plan (1) Atrial fibrillation with RVR: Plan: -continue amiodarone, metoprolol, and apixaban. -would use intravenous metoprolol for elevated ventricular response when necessary. increased ventricular response likely related to his acute illness. (2) Demand ischemia: Plan: -mild elevation likely secondary to a supply/demand mismatch. -no evidence to support an acute coronary syndrome. 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 (4) Chronic diastolic CHF (congestive heart failure): Plan: -euvolemic by examination today. -does not use chronic diuretics. Admission and Anticipated Discharge Date Admission Date: June 09, 2021 Subjective The patient is resting comfortably in bed without complaints of chest pain, dyspnea, or palpitations. He is anxious for hospital discharge. Physical Exam Physical Exam: In general this is a well-developed well-nourished white male in no acute distress. HEENT exam is negative. Neck reveals normal carotid upstrokes without bruits. No jugular venous distention. There is no thyromegaly. Cardiovascular exam reveals an irregularly irregular rhythm with distant heart sounds. No murmurs or S3. Lungs are clear without rales, rhonchi, or wheezes. Abdomen is soft without bruits. Extremities reveal intact radial artery and posterior tibial pulses bilaterally. There is no peripheral edema. Results & Data ([facility]) Vital Signs (Past 12 Hours) Vital Signs Temp Pulse Resp BP BP Pulse Ox 06/10/21 11:29 36.7 C 116 H 20 134/88 96 06/10/21 07:44 37.1 C 121 H 19 161/96 H 95 06/10/21 04:41 36.7 C 107 H 16 126/76 96 Diagnostic Findings surveillance system monitor notes atrial fibrillation with heart rates varying from his [employer] 80 beats per minute when asleep, and up to 140 beats per minute when active. PG Care Time/CCT Total # of Minutes Spent Total Time Spent with Patient: Total time spent is greater than 50% in coordination of care (as documented) at patient's floor/unit and/or counseling patient: Coding Level of Care Code 20675 Subseq Hosp Care Lvl 3 Diagnoses Atrial fibrillation with RVR I48.91 Demand ischemia I24.8 intermodal dispatcher (current) use of anticoagulants Z79.01 Chronic diastolic CHF (congestive heart failure) I50.32
--- NOTE | 2021-06-10 19:15 | Hospitalist Progress Note ---
Date of Service June 10, 2021 Assessment & Plan (1) Sepsis: Plan: 81 yo M w/ pMHx. of esophageal cancer, prostate cancer, renal cancer, GERD, COPD, HFpEF, hypercholesterolemia, mitral regurgitation, HTN and atrial fibrillation presents with weakness, abdominal pain, and found to meet SIRS criteria and in atrial fibrillation with RVR. Sepsis POA -Lactate 2.7->1.8, Procalcitonin 13.63, no leukocytosis -CXR without a clearly identifiable focal opacity, CT a/p w/ atelectasis at lung bases - on empiric Ertapenem started in the ER given penicillin allergy, has gram negative coverage - IVF X3L boluses in the ER along with continued fluids at a rate of 125 - admitted to PCU - MRSA screen ordered, pending - blood cultures show gram negative rods, pending - urine cultures show pin point growth, reincubating A. fib with RVR on anticoagulation -[id number] score of 4 for age, CHF, HTN -EKG with atrial fibrillation w/ RVR, HR up to 180's -troponin < 0.015 on admit trending up to 0.213 - likely demand ischemia - ECHO 06/09 shows EF 50-55% improved from 2010, borderline global hypokinesia of left ventricle - given Metoprolol T. in the ER, metoprolol currently held due to soft pressures - continue Amiodarone -cardiology consulted, suggested continue amiodarone, continue metoprolol when BP higher, use caution with IVF -episode tachycardia HR 121 gave 1L bolus over 2hr, no improvement Abdominal pain and diarrhea potentially viral process although no sick contacts, no prior antibiotics lowering the likelihood that this is c. diff -CT a/p with multiple findings including reflux vs. achalasia and mild enteritis of the colon - recieved IVF in ED - c. 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 2.5 up from baseline around 1.6, currently 2.09 Weakness and recent fall - PT & OT ordered, patient states he is back at baseline Elevated blood sugar w/o diagnosis of DM -BSG 204 --> 124 - SSI ordered - basal insulin at 5 BID ordered - continue to follow blood sugars Anemia, normocytic -Hx. of iron deficiency anemia s/p IV infusion -prior iron level low at 33 - continue to follow HTN - holding Amlodipine, metoprolol in the setting of hypotension HFrEF, prior ECHO from 2010 shows EF of 30% - ECHO 06/09 shows EF 50-55% inproved from 2010, borderline global hypokinesia of left ventricle - given a significant amount of fluid - continue to evaluate fluid status FENa: carb consistent diet Code Status: full DVT PPX: eliquis PT/OT: ordered, seen, not needed Case Management: [] Dispo: home CoyYenny Do PGY 1, FCM (2) Atrial fibrillation with RVR: (3) Diarrhea: (4) Stage III chronic kidney disease: (5) Acute kidney injury: (6) Chronic diastolic CHF (congestive heart failure): (7) Hypertension: Admission and Anticipated Discharge Date Admission Date: June 09, 2021 Supervising Physician Co-Signing Physician Notes Resident Physician Supervision Note: I independently interviewed and examined the patient and verified the esquivel history and physical, reviewed labs and image studies and agree with resident Dr. Cespedes findings and care plan. Subjective 81yo Male with PMH cancer (esophageal, prostate, renal), GERD, COPD, HFpEF, HLD, HTN, afib here for weakness, abd pain, and afib with RVR meeting SIRS criteria. Patient seen at bedside resting comfortably, says he feels back to normal. Patient looking forward to going home. Review of Systems Review of Systems: Negative fever chills Negative headache dizziness Negative chest pain palpitations SOB Negative nausea vomitting diarrhea constipation Negative numbness tingling rash swelling Physical Exam Physical Exam: General: Well appearing, age appropriate Heart: atrial fibrillation Lungs: cta b/l, no wheezes/rales/rhonchi Abd: soft, NT/ND, +BS Extremities: no swelling, no rashes Results & Data Results & Data ([facility]) Vital Signs (Past 12 Hours) Vital Signs Temp Pulse Resp BP BP Pulse Ox 06/10/21 15:11 36.8 C 126 H 19 149/85 H 96 06/10/21 11:29 36.7 C 116 H 20 134/88 96 06/10/21 07:44 37.1 C 121 H 19 161/96 H 95 Laboratory Results 06/10/21 06/10/21 06/10/21 Range/Units 16:15 11:19 07:40 WBC (4.8-10.8) K/uL RBC (4.7-6.1) M/uL Hgb (14.0-18.0) g/dL Hct (42-52) % MCV (80-100) fL MCH (25-34) pg MCHC (32-36) g/dL RDW Std Deviation (36.4-46.3) fL RDW Coeff of Familia (11.5-14.5) % Plt Count (130-400) K/uL Platelet Estimate (Normal) Sodium (136-145) mmol/L Potassium (3.5-5.1) mmol/L Chloride (98-107) mmol/L Carbon Dioxide (21-32) mmol/L Anion Gap (3-11) BUN (7-18) mg/dl Creatinine (0.6-1.4) mg/dl Est Cr Clr Drug Dosing ml/min Est GFR ( Amer) ml/min Est GFR (Non-Af Amer) ml/min BUN/Creatinine Ratio (10-20) Glucose (70-99) mg/dl POC Glucose 106 H 84 (70-99) mg/dl Estimat Average Glucose mg/dl Hemoglobin A1c (4.5-5.6) % Calcium (8.5-10.1) mg/dl Troponin I 0.071 H* (0-0.045) ng/ml 06/10/21 06/10/21 06/10/21 Range/Units 06:55 06:20 06:20 WBC 14.89 H (4.8-10.8) K/uL RBC 3.19 L (4.7-6.1) M/uL Hgb 8.1 L (14.0-18.0) g/dL Hct 27.4 L (42-52) % MCV 85.9 (80-100) fL MCH 25.4 (25-34) pg MCHC 29.6 L (32-36) g/dL RDW Std Deviation 58.2 H (36.4-46.3) fL RDW Coeff of Familia 19.9 H (11.5-14.5) % Plt Count 82 L (130-400) K/uL Platelet Estimate Decreased L (Normal) Sodium 143 (136-145) mmol/L Potassium 3.7 (3.5-5.1) mmol/L Chloride 112 H (98-107) mmol/L Carbon Dioxide 23 (21-32) mmol/L Anion Gap 7.0 (3-11) BUN 32 H (7-18) mg/dl Creatinine 1.85 H (0.6-1.4) mg/dl Est Cr Clr Drug Dosing 29.6 ml/min Est GFR ( Amer) 38.4 ml/min Est GFR (Non-Af Amer) 33.2 ml/min BUN/Creatinine Ratio 17.5 (10-20) Glucose 87 (70-99) mg/dl POC Glucose 84 (70-99) mg/dl Estimat Average Glucose mg/dl Hemoglobin A1c (4.5-5.6) % Calcium 8.5 (8.5-10.1) mg/dl Troponin I (0-0.045) ng/ml 06/10/21 06/09/21 Range/Units 06:20 20:28 WBC (4.8-10.8) K/uL RBC (4.7-6.1) M/uL Hgb (14.0-18.0) g/dL Hct (42-52) % MCV (80-100) fL MCH (25-34) pg MCHC (32-36) g/dL RDW Std Deviation (36.4-46.3) fL RDW Coeff of Familia (11.5-14.5) % Plt Count (130-400) K/uL Platelet Estimate (Normal) Sodium (136-145) mmol/L Potassium (3.5-5.1) mmol/L Chloride (98-107) mmol/L Carbon Dioxide (21-32) mmol/L Anion Gap (3-11) BUN (7-18) mg/dl Creatinine (0.6-1.4) mg/dl Est Cr Clr Drug Dosing ml/min Est GFR ( Amer) ml/min Est GFR (Non-Af Amer) ml/min BUN/Creatinine Ratio (10-20) Glucose (70-99) mg/dl POC Glucose 105 H (70-99) mg/dl Estimat Average Glucose 117 mg/dl Hemoglobin A1c 5.7 H (4.5-5.6) % Calcium (8.5-10.1) mg/dl Troponin I (0-0.045) ng/ml Medications Administered Current Inpatient Medications Acetaminophen (Acetaminophen 325 Mg Tab) 650 mg PO Q4H PRN PRN Reason: Pain or Fever Stop: 07/09/21 04:56 Amiodarone HCl (Amiodarone 200 Mg Tab) 200 mg PO DAILY REGINE Stop: 07/09/21 08:59 Last Admin: 06/10/21 08:23 Dose: 200 mg Documented by: Apixaban (Apixaban 2.5 Mg Tab) 2.5 mg PO BID REGINE Stop: 07/09/21 08:59 Last Admin: 06/10/21 08:21 Dose: 2.5 mg Documented by: Dextrose (Dextrose 50% 50 Ml Syringe) 25 - 50 ml IV UD PRN; Protocol PRN Reason: Hypoglycemia Protocol Stop: 07/09/21 04:56 Ferrous Sulfate (Ferrous Sulfate 325 Mg Tab) 325 mg PO QDL REGINE Stop: 07/09/21 11:29 Last Admin: 06/10/21 12:01 Dose: 325 mg Documented by: Glucagon (Glucagon For Inj 1 Mg Vial) 1 mg SQ UD PRN; Protocol PRN Reason: Hypoglycemia Protocol Stop: 07/09/21 04:56 Glucose (Glucose 10 Tabs/Tube) 4 - 8 tabs PO UD PRN; Protocol PRN Reason: Hypoglycemia Protocol Stop: 07/09/21 04:56 Glucose (Glucose 40% Gel 15 Gm Tube) 15 - 30 gm PO UD PRN; Protocol PRN Reason: Hypoglycemia Protocol Stop: 07/09/21 04:56 Ertapenem 500 mg/ Sodium (Chloride) 55 mls @ 100 mls/hr IV Q24H REGINE; Protocol Stop: 06/23/21 21:59 Last Infusion: 06/09/21 23:20 Dose: Infused Documented by: Sodium Chloride (Nss 1000ml) 1,000 mls @ 125 mls/hr IV .Q8H [facility] Stop: 07/10/21 17:59 Insulin Aspart (Insulin Aspart 100 Units/Ml 3 Ml Pen) 0 units SC ACHS [facility] Stop: 07/09/21 07:29 Last Admin: 06/10/21 17:05 Dose: 2 units Documented by: Insulin Glargine (Insulin Glargine Solostar 100 Units/Ml 3 Ml Pen) 5 units SC BID [facility] Stop: 07/09/21 08:59 Last Admin: 06/10/21 08:21 Dose: 5 units Documented by: Miscellaneous (Carbohydrates For Hypoglycemia ) 15 - 30 gm PO UD PRN PRN Reason: Hypoglycemia Protocol Stop: 07/09/21 04:56 Polyethylene Glycol (Polyethylene (Miralax) 17 Gm Pack) 17 gm PO DAILY PRN PRN Reason: Constipation Stop: 07/09/21 04:56 Resident Activity Tracking Resident Involvement: Resident Care Provided Care Provided: Adult Hospital Medicine (1) Hypertension Hypertension type: essential hypertension Qualified Code(s): I10 - Essential (primary) hypertension
[2021-06-10] MEDS: ERTAPENEM SODIUM 500 MG in SODIUM CHLORIDE 0.9% 50 ML IV SCH (20:34)
[2021-06-11 07:49] LABS: Mean Corpuscular Hgb Conc 29.6 g/dL (32-36)
[2021-06-11 08:04] LABS: Hematocrit (blood only) 27.7 % (42-52); Hemoglobin 8.2 g/dL (14.0-18.0); Mean Corpuscular Hemoglobin 25.2 pg (25-34); Mean Corpuscular Volume 85.2 fL (80-100); RDW Coefficient of Variation 19.9 % (11.5-14.5); RDW Standard Deviation 59.4 fL (36.4-46.3); Red Blood Count 3.25 M/uL (4.7-6.1); White Blood Count 7.32 K/uL (4.8-10.8)
[2021-06-11 08:14] VITALS: PULSE 108; TEMP 97.7; O2SAT 96
[2021-06-11] MEDS: APIXABAN 2.5 MG TAB PO SCH (08:14)
[2021-06-11] MEDS: AMIODARONE 200 MG TAB PO SCH (08:14)
[2021-06-11] MEDS: INSULIN GLARGINE SOLOSTAR 100 UNITS/ML 3 ML PEN SC SCH (08:14)
[2021-06-11] MEDS: INSULIN ASPART 100 UNITS/ML 3 ML PEN SC SCH (08:16)
[2021-06-11 08:18] LABS: Platelet Count 88 K/uL (130-400)
[2021-06-11 08:22] LABS: Calcium 8.3 mg/dl (8.5-10.1); Creatinine Clr Calc Pharmacy 32.6 ml/min; Est GFR (African American) 43.5 ml/min; Est GFR (Non-African American) 37.5 ml/min; Potassium 3.5 mmol/L (3.5-5.1)
[2021-06-11 10:32] VITALS: BP 168/82
--- NOTE | 2021-06-11 11:16 | Discharge Summary ---
Date of Service June 11, 2021 Admission HPI Per Admitting Provider Randal Bridges is a 81-year-old male with a past medical history of esophageal cancer, prostate cancer, renal cancer, GERD, COPD, HFpEF, hypercholesterolemia, mitral regurgitation, HTN and atrial fibrillation presents with abdominal pain and weakness. He had an IV iron infusion on which was the first he has had. Yesterday he noted that he had abdominal pain that was described as mild discomfort along with retching without vomiting. He again had an episode today where he was having abdominal pain and nausea. 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 He was also noted by his Celina to be weak and to have fallen in the bathroom. He was having trouble walking up the stairs to the bathroom and when he got their he was stooped over and fell onto his hands without hitting his head or losing consciousness. He has also had sweats and night sweats over the last couple days. He had diarrhea yesterday as well as today, he normally has regular bowel movements and has not had any recent constipation. Penicillin allergy was 30 years ago and involved a rash on his chest. Social Hx. tobacco use: 20 pack year quit 2012 ETOH: rarely rec. drugs: none Celina would like to be updated with any changes: # [phone] Admission Exam Per Admitting Provider Constitutional: + lethargic; no acute distress Eyes: PERRL, conjunctivae normal, anicteric sclerae ENMT: external ear and nose normal, oropharynx normal Ears: + hearing impairment Neck: normal visual inspection Respiratory: normal respiratory effort, lungs clear to auscultation Cardiovascular: Rate/Rhythm: + tachycardic and + irregularly irregular Extremities: no pedal edema Gastrointestinal (Abdomen): - soft, no guarding - nTTP Skin: no rashes, warm and dry Psychiatric: A+Ox3, euthymic affect Principal Diagnosis UTI with sepsis Discharge Exam General: Well appearing, age appropriate Heart: RRR, +S1 S2, no murmurs/gallops/rubs Lungs: cta b/l, no wheezes/rales/rhonchi Abd: soft, NT/ND, +BS Extremities: no swelling, no rashes Discharge Data Allergies Allergy/AdvReac Type Severity Reaction Status Date / Time amoxicillin Allergy Mild RASH Verified 06/08/21 22:51 ampicillin Allergy Mild RED Verified 06/08/21 22:51 PIMPLES ON CHEST Penicillins Allergy Mild RASH Verified 06/08/21 22:51 Consultations 06/09/21 00:19 ED Decision to Admit Stat 06/09/21 13:07 Consult Cardiology Routine Ordered Studies 06/09/21 01:45 CT abd pelvis oral con only Urgent Hospital Course (1) Sepsis: 81 yo M w/ pMHx. of esophageal cancer, prostate cancer, renal cancer, GERD, COPD, HFpEF, hypercholesterolemia, mitral regurgitation, HTN and atrial fibrillation presents with weakness, abdominal pain, and found to meet SIRS criteria and in atrial fibrillation with RVR. Sepsis POA On admission elevated HR 160 due to afib, Lactate 2.7->1.8, Procalcitonin 13.63, WBC 6.57 --> 22.08, BP dropped to 86/54. IVF X3L boluses in the ER. CXR without a clearly identifiable focal opacity, CT a/p w/ atelectasis at lung bases. Empiric Ertapenem started in the ER given penicillin allergy. Patient condition improved, he states he is back at baseline.Blood cultures showed Ecoli, Urine culture showed pinpoint growth - culture was drawn after first dose of IV antibiotics. Patient was discharged on cefpodoxime, instructed to take if twice a day for 12 days. A. fib with RVR on anticoagulation [id number] score of 4 for age, CHF, HTN. EKG with atrial fibrillation w/ RVR, HR up to 180's. Troponin < 0.015 on admit trending up to 0.213 - likely demand ischemia. Given Amiodarone, Metoprolol T. in the ER, metoprolol later held due to soft pressures. ECHO 06/09 shows EF 50-55% improved from 2010, borderline global hypokinesia of left ventricle. Cardiology consulted, suggested continue amiodarone, continue metoprolol when BP higher, use caution with IVF. 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 Abdominal pain and diarrhea Potentially viral process although no sick contacts, no prior antibiotics so low likelihood c. diff. CT a/p with multiple findings including reflux vs. achalasia and mild enteritis of the colon. Patient received IVF in ED. Currently resolved. 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 He received fluids X3 bags in ED. Cr. 2.5 on admit (baseline around 1.6), currently 1.67 Weakness and recent fall PT & OT ordered, patient states he is back at baseline Elevated blood sugar w/o diagnosis of DM BSG 204 --> 124 with insulin. HA1c 5.7. Please have him follow up his blood sugar with PCP. Anemia, normocytic Hx. of iron deficiency anemia s/p IV infusion, prior iron level low at 33 HTN Held Amlodipine, metoprolol in the setting of hypotension in hospital. He can resume these medications at home. HFrEF Prior ECHO from 2010 shows EF of 30%. ECHO 06/09 shows EF 50-55% improved from 2010, borderline global hypokinesia of left ventricle. He has been given a significant amount of fluid in hospital via IV, tolerated well. (2) Atrial fibrillation with RVR: (3) Diarrhea: (4) Stage III chronic kidney disease: (5) Acute kidney injury: (6) Chronic diastolic CHF (congestive heart failure): (7) Hypertension: Total Time Total Time Spent Total Time Spent (In Minutes): see attending attestation Discharge Plan Discharge Items Patient Disposition: Home - Self-Care Reason For Visit: A-FIB WITH RVR Discharge Diagnosis: Urinary Tract Infection Activity: Resume your previous activity Non-emergency contact: Primary Care Provider Call non-emergency contact if: your symptoms worsen, your pain is worsening and you have a fever Follow-up/Referrals: Randal Genao MD [Primary Care Provider] - 06/15/21 11:00 am Diet: Regular and Heart Healthy Addtl Attending Provider Instructions: You were admitted to the hospital for sepsis with a urinary tract infection. You had bacteria that entered through your urinary tract and infected your blood stream. You were treated with antibiotics and fluids. Please continue taking your antibiotics at home twice a day for 12 days to ensure your infection is fully treated. A discharge summary will be sent to your primary care physician to ensure continuity of care. Please bring this discharge summary with you to your next office appointment so that your provider can review it at that time. Follow-up appointments: Make a follow-up appointment with your PCP within the next week. It is very important that you follow up with them shortly after discharge from the hospital. Keep all your follow-up appointments as already scheduled. If you cannot make an appointment, notify your provider. Medications: Your medication list has been reviewed and reconciled upon discharge to ensure accuracy and continuity of care. An updated list of all your medications is included with your hospital discharge paperwork. Please review this list closely, and make note of any changes. * We sent a new medication called Cefpodoxime to your pharmacy. Take Cefpodoxime 100mg one tablet twice a day for 12 days. Take your medications as instructed; do not skip a dose of your medicines. Make sure all of your doctors know every medicine you are taking (including [id number] medicines, vitamins, and supplements). Call your primary care provider before taking any new medicines (including [id number] medicines, vitamins, and supplements), because some of these may interact with your current medications, or may make your symptoms worse. Tell your primary care provider if you cannot afford your medications. CONTACT YOUR PRIMARY CARE PROVIDER if you experience any of the following: fever, shortness of breath, pain with urinary Difficulty following your treatment plan, or difficulty taking medications CALL 911 OR GO TO THE EMERGENCY DEPARTMENT if you experience any of the following: Sudden, severe abdominal pain or nausea/vomiting Severe chest pain, or chest pain that radiates (moves) to your jaw or arm Sudden, severe shortness of breath or difficulty breathing Thank you for allowing us to participate in your care. Pending Studies at Discharge: No Stand-Alone Forms: My [facility], Smoking Cessation Medications and DC Order Prescriptions: New cefpodoxime 100 mg tablet 100 mg PO BID 12 Days Qty: 24 RF: 0 Continued Eliquis 2.5 mg tablet 2.5 mg PO BID Qty: 180 RF: 3 amiodarone 200 mg tablet 200 mg PO DAILY Qty: 90 RF: 3 amlodipine 5 mg tablet 5 mg PO DAILY Qty: 90 RF: 3 metoprolol succinate 50 mg tablet extended release 24 hr 50 mg PO BID Qty: 180 RF: 3 ferrous sulfate [Iron (ferrous sulfate)] 325 mg (65 mg iron) Tablet 325 mg PO QDL RF: 0 Discharge Orders: Discharge Order (Routine); Ordered 06/11/21 Ordered By: Yenny Cespedes Admission Data Admit Date/Time: 06/09/21 02:40 Attending Provider: Merlyn Hyatt Admit Provider: Alfonso Huggins Primary Care Provider: Randal Genao Other Providers: Vanesa Bautista Anthony F. Other Interventions: Discharge Summary Assessment (RN) Last Done: 06/11/21 10:30 Supervising Physician Co-Signing Physician Notes Resident Physician Supervision Note: I independently interviewed and examined the patient and verified the esquivel history and physical, reviewed labs and image studies and agree with resident Dr. Cespedes findings and care plan. Resident Activity Tracking Resident Involvement: Resident Care Provided Care Provided: Adult [facility] Medicine
== END 2021-06-11 11:34 | disposition home or self-care (01) | DRG 872 ==
LOC: ED 21:59 → 2S 06-09 02:40 → SUATTDRO 06-09 02:40 → 2S 06-09 04:05

== ENCOUNTER 2021-07-03 23:22 | Inpatient (IN) ==
[2021-07-03] MEDS ORDERED: ERTAPENEM SODIUM 10 ML IV STA (23:37)
--- NOTE | 2021-07-03 23:46 | Emergency Department Note ---
Impression & Plan Bacteremia due to Gram-negative bacteria, Anemia, Leukocytosis ED Provider Note NAME: RANDAL FERREIRA AGE: 81 SEX: M : 1940 ARRIVES VIA: Walk-In INFORMANT: Patient ED PROVIDER(S): Brad Alvarez DO CHIEF COMPLAINT: gram neg bacteremia HPI: Patient is an 81-year-old male who presents the ER for chills and fevers. He was having some nausea and vomiting. All of his symptoms started yesterday. He denies any chest pain or shortness of breath. He does have some abdominal pain which he describes as he has to pass gas which she has been doing. He denies any headache or change in vision. No chest pain or shortness of breath. No other exacerbating or remitting factors. He does have a history of recent E. coli bacteremia. He was seen evaluated earlier today and called back due to gram-negative bacteremia in his blood. ROS: See above HPI for pertinent positives & negatives. A total of 10 systems reviewed and were otherwise negative. PAST MEDICAL HISTORY:See Below PAST SURGICAL HISTORY:See Below FAMILY HISTORY:See Below SOCIAL HISTORY:See Below HOME MEDICATIONS:See Below ALLERGIES:See Below VITALS:See Below PHYSICAL EXAMINATION: GENERAL: Sitting up in bed, alert, well appearing, well nourished, no distress, non-toxic EYE EXAM: normal conjunctiva. PERRL and EOM's grossly intact. OROPHARYNX: Poor dentition NECK: supple, no nuchal rigidity, no adenopathy, non-tender LUNGS: Clear to auscultation. Normal chest wall mechanics HEART: no murmurs, S1 normal and S2 normal ABDOMEN: abdomen soft, non-tender, normo-active bowel sounds, no masses, no freddy ound or guarding. BACK: Back is symmetrical on inspection and there is no deformity, no midline tenderness, no CVA tenderness. SKIN: no rashes and no bruising UPPER EXTREMITIES: upper extremities are grossly normal. LOWER EXTREMITIES: No pitting edema. NEURO EXAM: Normal sensorium, cranial nerves II-XII grossly intact, normal speech, no gross weakness of arms, no gross weakness of legs. MEDICAL DECISION MAKING: Patient is a 1-year-old gentleman that presents the ER who was called back in due to gram-negative bacteria growing out in his blood cultures from earlier today. He has no complaints with exception of nausea vomiting chills. Blood work was redrawn. IV was established blood work was obtained. Labs show a leukocytosis of 12,000. Mild anemia 10. Platelets were low at 78. BMP with a chloride of 109. LFTs bilirubin with a T bili 1.3. He has no extremity pain. Patient was given ertapenem as well as IV fluids due to his previous allergies and gram-negative bacteremia. Patient was updated bedside discussed the hospitalist admitted for further work-up. CTs and x-rays performed earlier today were reviewed. Covid was negative. Triage Nursing notes reviewed. Limited review of prior medical records performed Vital Signs: reviewed and remarkable for no significant abnormalities Differential diagnosis: Differential diagnosis includes etiologies such as sepsis, UTI, pneumonia, metabolic, electrolyte abnormalities, cardiac sources, intracerebral event, toxicologic, neurological, as well as others were entertained. ER treatment provided: See below Diagnostics interpreted by me: ECG: none Cardiac Monitoring: An order was placed for continuous cardiac monitoring. The monitor shows a rate of 68 with sinus rhythm. Laboratory studies: As stated above and show below. Imaging studies: See below Consultation(s): Discussed with Salas Lawrence for further evaluation Procedures: none Critical Care: None Past Med/Surg History Medical History (Updated 07/04/21 @ 02:31 by Brad Alvarez DO) Anemia Anxiety no meds Atrial fibrillation follows with Dr. 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 Sister Colorectal cancer Breast cancer Other No family history of adverse response to anesthesia Denies family history of Ovarian cancer Prostate cancer Myocardial infarction Osteoarthritis Lung cancer Social History Smoking Status: Former smoker Tobacco Type: Cigarettes, Pipe and Cigars Age Started Using Tobacco: 9; Age Quit Using Tobacco: 71; packs per day: 0.5; Second Hand Exposure: No; Hx Alcohol Use: No Hx Substance Use: No Preferred Language: French Communication Ability: Effective Visual Impairment: Diminished Hearing Ability: Hard of Hearing Operations Support Specialist Required: Yes Beliefs That Will Affect Care: None marital status: Current Living Situation: Spouse current occupational status: employed current occupation: [employer] How many Children do You have: 1 Feels Safe at Home: Yes Childhood Exposure to Second-Hand Smoke: No caffeine: Yes (drinks coffee daily) Dental Care, Regularly: No Physical Activity Frequency: Daily Physical Activity Frequency Comment: is a landrum Seatbelt Use: always Sunscreen Use: No Assistive Devices: None Allergies Allergies Allergy/AdvReac Type Severity Reaction Status Date / Time amoxicillin Allergy Mild RASH Verified 07/04/21 00:01 ampicillin Allergy Mild RED Verified 07/04/21 00:01 PIMPLES ON CHEST Penicillins Allergy Mild RASH Verified 07/04/21 00:01 pollen extracts AdvReac Watery Eye Unverified 07/04/21 00:01 Home Meds Home Medications Medication Instructions Recorded Confirmed ferrous sulfate 325 mg (65 mg 325 mg PO QDL 04/29/20 07/04/21 iron) tablet (Iron (ferrous sulfate)) Previous Rx's Medication Instructions Recorded apixaban 2.5 mg tablet (Eliquis) 2.5 mg PO BID #180 tab 07/25/20 amiodarone 200 mg tablet 200 mg PO DAILY #90 tab 09/08/20 amlodipine 5 mg tablet 5 mg PO DAILY #90 tab 10/13/20 metoprolol succinate 50 mg 50 mg PO BID #180 tab 10/27/20 tablet,extended release 24 hr cefdinir 300 mg capsule 300 mg PO BID 10 Days #20 cap 07/03/21 Results & Data (ED) Vital Signs Vital Signs - 24 hr 07/03/21 23:43 07/04/21 00:16 07/04/21 00:17 Temperature 36.5 C Temperature Source Temporal Artery Scan Pulse Rate 64 63 Pulse Rate [Finger] 64 Respiratory Rate 20 18 18 Respiratory Effort / Characteristics Non-Labored Spontaneous Non-Labored Spontaneous Respiratory Depth Normal Normal Blood Pressure 107/62 Blood Pressure [Left Arm] 115/57 L Blood Pressure Mean 77 Blood Pressure Mean [Left Arm] 76 Pulse Oximetry 98 97 97 Oxygen Delivery Method Room Air Room Air Room Air Sepsis Recent Fever Within 48 Hours Yes Sepsis New/Unexplained Change in Mental Status No Sepsis Action Taken by Nursing No Action Required 07/04/21 00:30 07/04/21 01:00 Temperature Temperature Source Pulse Rate Pulse Rate [Finger] Respiratory Rate 18 18 Respiratory Effort / Characteristics Non-Labored Spontaneous Non-Labored Spontaneous Respiratory Depth Blood Pressure Blood Pressure [Left Arm] Blood Pressure Mean Blood Pressure Mean [Left Arm] Pulse Oximetry 97 93 Oxygen Delivery Method Room Air Room Air Sepsis Recent Fever Within 48 Hours Sepsis New/Unexplained Change in Mental Status Sepsis Action Taken by Nursing Laboratory Data Result diagrams: 07/03/21 23:59 07/03/21 23:59 Lab Results 07/03/21 07/03/21 Range/Units 23:59 23:59 WBC 12.16 H (4.8-10.8) K/uL RBC 3.68 L (4.7-6.1) M/uL Hgb 10.3 L (14.0-18.0) g/dL Hct 33.1 L (42-52) % MCV 89.9 (80-100) fL MCH 28.0 (25-34) pg MCHC 31.1 L (32-36) g/dL RDW Std Deviation 73.1 H (36.4-46.3) fL RDW Coeff of Familia 22.6 H (11.5-14.5) % Plt Count 78 L (130-400) K/uL Immature Gran % (Auto) 0.3 % Neut % (Auto) 69.0 % Lymph % (Auto) 11.4 % [place] % (Auto) 19.3 % Eos % (Auto) 0.0 % Baso % (Auto) 0.0 % Neut # (Auto) 8.38 H (1.4-6.5) K/uL Lymph # (Auto) 1.39 (1.2-3.4) K/uL [place] # (Auto) 2.35 H (0.11-0.59) K/uL Eos # (Auto) 0.00 (0-0.5) K/uL Baso # (Auto) 0.00 (0-0.2) K/uL Immature Gran # (Auto) 0.04 H (0.00-0.02) K/uL Platelet Estimate Decreased L (Normal) Anisocytosis Present Sodium 137 (136-145) mmol/L Potassium 3.9 (3.5-5.1) mmol/L Chloride 109 H (98-107) mmol/L Carbon Dioxide 24 (21-32) mmol/L Anion Gap 4.0 (3-11) BUN 16 (7-18) mg/dl Creatinine 1.92 H (0.6-1.4) mg/dl Est Cr Clr Drug Dosing Not Reportable Est GFR ( Amer) 36.8 ml/min Est GFR (Non-Af Amer) 31.7 ml/min BUN/Creatinine Ratio 8.3 L (10-20) Glucose 155 H (70-99) mg/dl Calcium 8.8 (8.5-10.1) mg/dl Total Bilirubin 1.3 H (0.2-1) mg/dl AST 22 (15-37) U/L ALT 25 (12-78) U/L Alkaline Phosphatase 95 (45-117) U/L Total Protein 6.9 (6.4-8.2) gm/dl Albumin 3.0 L (3.4-5.0) gm/dl Globulin 3.9 (2.5-4.0) gm/dl Albumin/Globulin Ratio 0.8 L (0.9-2) Administered Medications Discontinued Medications Ertapenem (Invanz) 10 mls @ 2 mls/min IV NOW STA Stop: 07/03/21 23:41 Last Admin: 07/04/21 00:27 Dose: 2 mls/min Documented by: [id number] Discharge Plan Visit Data Chief Complaint: Abnormal Labs/Diagnostic Testing Stated Complaint: ABNORMAL BLOOD WORK, CALLED IN ED Provider: Brad Alvarez Discharge Problem: Bacteremia due to Gram-negative bacteria, Anemia, Leukocytosis Forms Stand Alone Forms: My [facility] Prescriptions Prescriptions: No Action Eliquis 2.5 mg tablet 2.5 mg PO BID Qty: 180 RF: 3 amiodarone 200 mg tablet 200 mg PO DAILY Qty: 90 RF: 3 amlodipine 5 mg tablet 5 mg PO DAILY Qty: 90 RF: 3 metoprolol succinate 50 mg tablet extended release 24 hr 50 mg PO BID Qty: 180 RF: 3 ferrous sulfate [Iron (ferrous sulfate)] 325 mg (65 mg iron) Tablet 325 mg PO QDL RF: 0 cefdinir 300 mg capsule 300 mg PO BID 10 Days Qty: 20 RF: 0 Referrals Referrals: Randal Genao MD [Primary Care Provider] - Discharge Problem: Anemia Qualifiers: Anemia type: unspecified type Qualified Code(s): D64.9 - Anemia, unspecified Leukocytosis Qualifiers: Leukocytosis type: unspecified Qualified Code(s): D72.829 - Elevated white blood cell count, unspecified
[2021-07-04 00:23] LABS: Mean Corpuscular Hgb Conc 31.1 g/dL (32-36)
[2021-07-04 00:54] LABS: Hematocrit (blood only) 33.1 % (42-52); Hemoglobin 10.3 g/dL (14.0-18.0); Mean Corpuscular Volume 89.9 fL (80-100); RDW Coefficient of Variation 22.6 % (11.5-14.5); RDW Standard Deviation 73.1 fL (36.4-46.3); Red Blood Count 3.68 M/uL (4.7-6.1); White Blood Count 12.16 K/uL (4.8-10.8)
[2021-07-04 00:55] LABS: Alanine Aminotransferase 25 U/L (12-78); Aspartate Aminotransferase 22 U/L (15-37); BUN Creatinine Ratio 8.3 (10-20); Blood Urea Nitrogen 16 mg/dl (7-18); Calcium 8.8 mg/dl (8.5-10.1); Carbon Dioxide 24 mmol/L (21-32); Chloride 109 mmol/L (98-107); Est GFR (African American) 36.8 ml/min; Est GFR (Non-African American) 31.7 ml/min; Glucose 155 mg/dl (70-99); Potassium 3.9 mmol/L (3.5-5.1); Sodium 137 mmol/L (136-145)
[2021-07-04 00:58] LABS: Albumin Globulin Ratio 0.8 (0.9-2); Alkaline Phosphatase 95 U/L (45-117); Bilirubin,Total 1.3 mg/dl (0.2-1); Globulin 3.9 gm/dl (2.5-4.0); Total Protein 6.9 gm/dl (6.4-8.2)
[2021-07-04 01:00] LABS: Platelet Count 78 K/uL (130-400)
[2021-07-04 01:01] LABS: Anisocytosis Present; Immature Granulocytes # (auto) 0.04 K/uL (0.00-0.02); Immature Granulocytes % (auto) 0.3 %; Lymphocytes # (auto) 1.39 K/uL (1.2-3.4); Lymphocytes % (auto) 11.4 %; Monocytes # (auto) 2.35 K/uL (0.11-0.59); Monocytes % (auto) 19.3 %; Neutrophils # (auto) 8.38 K/uL (1.4-6.5); Platelet Estimate Decreased (Normal)
[2021-07-04] MEDS ORDERED: SIMETHICONE 80 MG CHEW PO PRN (01:23)
--- NOTE | 2021-07-04 01:23 | History & Physical Report ---
Date of Service July 04, 2021 Assessment & Plan (1) Bacteremia due to Gram-negative bacteria: Plan: Bacteremia due to gram-negative bacteria/acute UTI- Admission from 06/09-06/10/2021 showed E. coli bacteremia sensitive to all but ampicillin and Bactrim. Urine was contaminated at previous admission, and culture had been drawn after antibiotics have been given. Patient was given ertapenem 1 g IV by the ED Placed on ceftriaxone 1 g IV daily NSS at 80 mils per hour x2 L (2) Acute UTI: Plan: See above (3) Atrial fibrillation: Plan: Atrial fibrillation/hypertension- Continue amiodarone, amlodipine, apixaban and metoprolol succinate (4) Hypertension: Plan: See above History of Present Illness Chief Complaint: The patient was called in to the emergency department by staff, due to a blood culture drawn earlier in the day, returning as gram-negative bacteremia Primary Care Provider: Randal Genao MD The patient is an 81-year-old male with a past medical history including bacteremia due to E. coli, acute on chronic kidney disease, atrial fibrillation with RVR, esophageal cancer, permanent atrial fibrillation, hypertension, long- term use of anticoagulants, stage III chronic kidney disease, renal neoplasm, prostate cancer, GERD, COPD, anemia, chronic diastolic CHF and hypercholesterolemia. Patient was seen in the emergency department earlier in the day for symptoms of abdominal bloating and gas, for which he has been taking milk of magnesia and Tums without improvement. Among other testing, blood cultures were performed, and patient was discharged home. When the morning blood cultures returned gram-negative bacteremia, patient was called back into the ED this evening for admission. Patient did have admission from 06/09- 06/11/2021 for gram-negative bacteremia due to E. coli, from unknown but presumed urinary source Allergies Allergy/AdvReac Type Severity Reaction Status Date / Time amoxicillin Allergy Mild RASH Verified 07/04/21 00:01 ampicillin Allergy Mild RED Verified 07/04/21 00:01 PIMPLES ON CHEST Penicillins Allergy Mild RASH Verified 07/04/21 00:01 pollen extracts AdvReac Watery Eye Unverified 07/04/21 00:01 Home Medications Medication Instructions Recorded Confirmed Type ferrous sulfate 325 mg (65 mg 325 mg PO QDL 04/29/20 07/04/21 History iron) tablet (Iron (ferrous sulfate)) apixaban 2.5 mg tablet (Eliquis) 2.5 mg PO BID #180 tab 07/25/20 07/04/21 Rx amiodarone 200 mg tablet 200 mg PO DAILY #90 tab 09/08/20 07/04/21 Rx amlodipine 5 mg tablet 5 mg PO DAILY #90 tab 10/13/20 07/04/21 Rx metoprolol succinate 50 mg 50 mg PO BID #180 tab 10/27/20 07/04/21 Rx tablet,extended release 24 hr cefdinir 300 mg capsule 300 mg PO BID 10 Days #20 cap 07/03/21 07/04/21 Rx Past Med/Surg History Medical History (Updated 07/04/21 @ 02:31 by Brad Alvarez, DO) Anemia Anxiety no meds Atrial fibrillation follows with Dr. 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 Sister Colorectal cancer Breast cancer Other No family history of adverse response to anesthesia Denies family history of Ovarian cancer Prostate cancer Myocardial infarction Osteoarthritis Lung cancer Social History Smoking Status: Former smoker Tobacco Type: Cigarettes, Pipe and Cigars Age Started Using Tobacco: 9; Age Quit Using Tobacco: 71; packs per day: 0.5; Second Hand Exposure: No; Hx Alcohol Use: No Hx Substance Use: No Preferred Language: Danish Communication Ability: Effective Visual Impairment: Diminished Hearing Ability: Hard of Hearing Automatic Log Cut Off Sawyer Required: Yes Beliefs That Will Affect Care: None marital status: Current Living Situation: Spouse current occupational status: employed current occupation: [employer] How many Children do You have: 1 Feels Safe at Home: Yes Childhood Exposure to Second-Hand Smoke: No caffeine: Yes (drinks coffee daily) Dental Care, Regularly: No Physical Activity Frequency: Daily Physical Activity Frequency Comment: is a landrum Seatbelt Use: always Sunscreen Use: No Assistive Devices: None Review of Systems Review of Systems: The patient denies chest pain, palpitations, shortness of breath, dyspnea on exertion, cough, lower extremity swelling, sore throat, fevers, chills, sweats, vomiting, diarrhea , constipation, pelvic pain, blood in urine or stool, dysuria, urinary frequency or urgency, lightheadedness, dizziness, headache, memory loss, loss of consciousness, rash, abnormal bruising or bleeding, imbalance, focal or generalized weakness, numbness or tingling in arms or legs, generalized arthralgias or myalgias, back or neck pain, or night sweats. The review of systems is otherwise negative other than for that already noted above, and at least 10 systems have been reviewed. Physical Exam Physical Exam: The patient is awake, alert and oriented 3, well developed and well nourished, normocephalic and atraumatic, lying in bed and in no acute distress. HEENT--PERRL, EOMI, mucous membranes and oropharynx dry. Neck--supple. No JVD. No bruits. Thyroid normal, trachea midline, no adenopathy. Heart--normal S1 and S2. No murmurs, rubs or gallops. Lungs--clear bilaterally, no respiratory distress, no accessory muscle use. Abdomen--normal bowel sounds and soft. Mild epigastric tenderness. Nondistended, no hernias or masses, no organomegaly. Extremities--no cyanosis or clubbing. No edema. Dermatologic--normal skin turgor, normal color, no abnormal lymph nodes, no rash. Neurologic--cranial nerves II through XII grossly intact. Rheumatologic--normal range of motion. Psychiatric--normal affect. Results & Data Results & Data ([facility]) Vital Signs (Past 12 Hours) Vital Signs Temp Pulse Pulse Resp BP BP Pulse Ox 07/04/21 00:30 18 97 07/04/21 00:17 64 18 115/57 L 97 07/04/21 00:16 63 18 97 07/03/21 23:43 97.7 F 64 20 107/62 98 Laboratory Results Laboratory Results WBC 12.16 K/uL (4.8-10.8) H 07/03/21 23:59 RBC 3.68 M/uL (4.7-6.1) L 07/03/21 23:59 Hgb 10.3 g/dL (14.0-18.0) L 07/03/21 23:59 Hct 33.1 % (42-52) L 07/03/21 23:59 MCV 89.9 fL (80-100) 07/03/21 23:59 MCH 28.0 pg (25-34) 07/03/21 23:59 MCHC 31.1 g/dL (32-36) L 07/03/21 23:59 RDW Std Deviation 73.1 fL (36.4-46.3) H 07/03/21 23:59 RDW Coeff of Familia 22.6 % (11.5-14.5) H 07/03/21 23:59 Plt Count 78 K/uL (130-400) L 07/03/21 23:59 Immature Gran % (Auto) 0.3 % 07/03/21 23:59 Neut % (Auto) 69.0 % 07/03/21 23:59 Lymph % (Auto) 11.4 % 07/03/21 23:59 [place] % (Auto) 19.3 % 07/03/21 23:59 Eos % (Auto) 0.0 % 07/03/21 23:59 Baso % (Auto) 0.0 % 07/03/21 23:59 Neut # (Auto) 8.38 K/uL (1.4-6.5) H 07/03/21 23:59 Lymph # (Auto) 1.39 K/uL (1.2-3.4) 07/03/21 23:59 [place] # (Auto) 2.35 K/uL (0.11-0.59) H 07/03/21 23:59 Eos # (Auto) 0.00 K/uL (0-0.5) 07/03/21 23:59 Baso # (Auto) 0.00 K/uL (0-0.2) 07/03/21 23:59 Immature Gran # (Auto) 0.04 K/uL (0.00-0.02) H 07/03/21 23:59 Platelet Estimate Decreased (Normal) L 07/03/21 23:59 Anisocytosis Present 07/03/21 23:59 Sodium 137 mmol/L (136-145) 07/03/21 23:59 Potassium 3.9 mmol/L (3.5-5.1) 07/03/21 23:59 Chloride 109 mmol/L (98-107) H 07/03/21 23:59 Carbon Dioxide 24 mmol/L (21-32) 07/03/21 23:59 Anion Gap 4.0 (3-11) 07/03/21 23:59 BUN 16 mg/dl (7-18) 07/03/21 23:59 Creatinine 1.92 mg/dl (0.6-1.4) H 07/03/21 23:59 Est Cr Clr Drug Dosing Not Reportable 07/03/21 23:59 Est GFR ( Amer) 36.8 ml/min 07/03/21 23:59 Est GFR (Non-Af Amer) 31.7 ml/min 07/03/21 23:59 BUN/Creatinine Ratio 8.3 (10-20) L 07/03/21 23:59 Glucose 155 mg/dl (70-99) H 07/03/21 23:59 Calcium 8.8 mg/dl (8.5-10.1) 07/03/21 23:59 Total Bilirubin 1.3 mg/dl (0.2-1) H 07/03/21 23:59 AST 22 U/L (15-37) 07/03/21 23:59 ALT 25 U/L (12-78) 07/03/21 23:59 Alkaline Phosphatase 95 U/L (45-117) 07/03/21 23:59 Total Protein 6.9 gm/dl (6.4-8.2) 07/03/21 23:59 Albumin 3.0 gm/dl (3.4-5.0) L 07/03/21 23:59 Globulin 3.9 gm/dl (2.5-4.0) 07/03/21 23:59 Albumin/Globulin Ratio 0.8 (0.9-2) L 07/03/21 23:59 Diagnostic Findings [facility], [phone] CT Scan Report Patient: RANDAL FERREIRA Date: 07/03/21MR#: [id number]: [id number] HANNA LNAcct ID:[id number]: [facility]: 1940[facility] Zip[facility] [place] [id number]: [id number]: EDSex: MRoom/Bed:Att Phy:Diagnosis: CHILLS- DEHYDRATIONPri Phy: Randal Genao MDService Date: 07/03/21Fa Phy:Interpreting Phy: Deng Barba MDAdmit Phy: Ordering Phy: Ayaan Ackerman MD cc: ~ CT OF THE ABDOMEN AND PELVIS WITHOUT CONTRAST CLINICAL HISTORY: Abdominal pain, vomiting and fever. Esophageal cancer. COMPARISON STUDY: CT of the abdomen and pelvis June 09, 2021. TECHNIQUE: Axial images of the abdomen and pelvis were obtained without IV contrast. Images were reviewed in the axial, sagittal, and coronal planes. Automated exposure control was utilized for the study. A dose lowering technique was utilized adhering to the principles of ALARA. FINDINGS: Mild bilateral lower lung opacities have slightly decreased compared to CT of June 09, 2021. There are trace bilateral pleural effusions. No pneumatosis, free air or portal venous gas is present. Postoperative findings consistent with esophagectomy with gastric pull-up are partially imaged. Evaluation of the abdomen and pelvis is suboptimal on this unenhanced examina tion. A hepatic cyst is noted. Unenhanced images of the spleen, right adrenal gland and pancreas are unremarkable. There is no biliary or pancreatic ductal dilatation dictation. There is no peripancreatic or pericholecystic infiltration. No hydronephrosis is present. A hypodense left adrenal nodule is unchanged from earlier exams. Water attenuation renal lesions favor cysts although are suboptimally assessed on this unenhanced exam. There is a 2 cm lesion within the lower pole of the right kidney on image 195 of 416. This may reflect a solid renal lesion, better depicted on prior contrast enhanced CT of October 09, 2012. There is an additional indeterminate 1.2 cm lesion within the midpole the right kidney. There is no evidence for a bowel obstruction. Colonic diverticulosis is noted without evidence for acute diverticulitis. There is no lymphadenopathy. There is no ascites. Bladder wall irregularity is noted with trabeculation. Prostate is enlarged. No acute fracture or suspicious lesion is identified within the visualized skeletal structures. The abdominal aorta is ectatic. IMPRESSION: 1. No acute process within the abdomen or pelvis on unenhanced exam. 2. Colonic diverticulosis without evidence for acute diverticulitis. No bowel obstruction. 3. 2 cm right lower pole renal lesion which was shown to likely reflect a enhancing renal lesion on CT of October 09, 2012. This represents a solid renal neoplasm. Additional indeterminate 1.2 cm right mid pole renal lesion. 4. Bladder wall thickening which is unchanged and likely chronic. ACT 112: Negative or not required by law. Electronically signed by: Deng Barba M.D. 07/03/2021 3:07 PM Dictated: 07/03/21 1456Transcribed: 07/03/21 1456 Code Status & VTE Plan Code Status Full code VTE Prophylaxis Plan VTE Prophylaxis will be ordered: Yes PG Care Time/CCT Total # of Minutes Spent Total Time Spent with Patient: Total time spent is greater than 50% in coordination of care (as documented) at patient's floor/unit and/or counseling patient: Coding Level of Care Code 58835 Initial Inpt Care Lvl 3 Diagnoses Bacteremia due to Gram-negative bacteria R78.81 Acute UTI N39.0 Atrial fibrillation I48.0 Atrial fibrillation type: paroxysmal Hypertension I10 Hypertension type: essential hypertension (1) Atrial fibrillation Atrial fibrillation type: paroxysmal Qualified Code(s): I48.0 - Paroxysmal atrial fibrillation (2) Hypertension Hypertension type: essential hypertension Qualified Code(s): I10 - Essential (primary) hypertension
[2021-07-04] MEDS ORDERED: SODIUM CHLORIDE 0.9% 500 ML IV ONE (02:01)
[2021-07-04] MEDS ORDERED: ONDANSETRON INJ 2 MG/ML 2 ML VIAL IV PRN (05:25)
[2021-07-04] MEDS ORDERED: ACETAMINOPHEN 325 MG TAB PO PRN (05:25)
[2021-07-04] MEDS: SODIUM CHLORIDE 0.9% 1000ML 1,000 ML IV SCH ×2 (06:12→18:56)
[2021-07-04] MEDS ORDERED: levoFLOXacin 500MG / 100ML D5W IV ONE (06:26)
[2021-07-04] MEDS ORDERED: levoFLOXacin/D5W 500 MG/100 ML BAG IV ONE (07:00)
[2021-07-04] MEDS: METOPROLOL SUCC 50MG EXT REL TAB PO SCH ×2 (10:12→20:51)
[2021-07-04] MEDS: AMIODARONE 200 MG TAB PO SCH (10:12)
[2021-07-04] MEDS: APIXABAN 2.5 MG TAB PO SCH ×2 (10:12→20:50)
[2021-07-04] MEDS: FERROUS SULFATE 325 MG TAB PO SCH (13:34)
[2021-07-05] MEDS ORDERED: CEFEPIME 2,000 MG in SYRINGE 0 ML IV SCH (06:00)
[2021-07-05 06:55] LABS: Hemoglobin 9.6 g/dL (14.0-18.0); Mean Corpuscular Hemoglobin 28.1 pg (25-34); Mean Corpuscular Volume 90.6 fL (80-100); RDW Coefficient of Variation 22.7 % (11.5-14.5); RDW Standard Deviation 73.6 fL (36.4-46.3); Red Blood Count 3.42 M/uL (4.7-6.1); White Blood Count 5.54 K/uL (4.8-10.8)
[2021-07-05 07:15] LABS: Platelet Count 71 K/uL (130-400)
[2021-07-05 07:17] LABS: Anisocytosis Present; Eosinophils # (auto) 0.01 K/uL (0-0.5); Eosinophils % (auto) 0.2 %; Giant Platelets 2+; Immature Granulocytes # (auto) 0.01 K/uL (0.00-0.02); Immature Granulocytes % (auto) 0.2 %; Lymphocytes # (auto) 1.07 K/uL (1.2-3.4); Lymphocytes % (auto) 19.3 %; Monocytes # (auto) 1.03 K/uL (0.11-0.59); Monocytes % (auto) 18.6 %; Neutrophils # (auto) 3.42 K/uL (1.4-6.5); Neutrophils % (auto) 61.7 %; Platelet Estimate Decreased (Normal)
[2021-07-05 07:21] LABS: Albumin Level 2.6 gm/dl (3.4-5.0); BUN Creatinine Ratio 12.5 (10-20); Calcium 8.5 mg/dl (8.5-10.1); Est GFR (African American) 48.8 ml/min; Est GFR (Non-African American) 42.1 ml/min; Potassium 3.9 mmol/L (3.5-5.1)
[2021-07-05 07:34] LABS: Albumin Globulin Ratio 0.7 (0.9-2); Bilirubin,Total 0.6 mg/dl (0.2-1); Globulin 3.9 gm/dl (2.5-4.0); Total Protein 6.5 gm/dl (6.4-8.2)
[2021-07-05] MEDS: APIXABAN 2.5 MG TAB PO SCH ×2 (07:39→19:18)
[2021-07-05] MEDS: AMIODARONE 200 MG TAB PO SCH (07:39)
[2021-07-05] MEDS: METOPROLOL SUCC 50MG EXT REL TAB PO SCH ×2 (07:40→19:18)
[2021-07-05] MEDS ORDERED: levoFLOXacin/D5W 250 MG/50 ML BAG IV SCH (08:00)
[2021-07-05] MEDS: FERROUS SULFATE 325 MG TAB PO SCH (11:10)
[2021-07-05] MEDS: CEFEPIME 2,000 MG in SYRINGE 0 ML IV SCH (16:41)
--- NOTE | 2021-07-05 18:12 | Hospitalist Progress Note ---
Date of Service July 05, 2021 Assessment & Plan (1) Bacteremia due to Gram-negative bacteria: Plan: Bacteremia due to E. coli bacteria/acute UTI- Admission from 06/09-06/10/2021 showed E. coli bacteremia sensitive to all but ampicillin and Bactrim. Urine was contaminated at previous admission, and culture had been drawn after antibiotics have been given. Patient was given ertapenem 1 g IV by the ED Change to ceftriaxone 1 g IV daily Patient continues with chills and sweats Afebrile x48 hours Anticipate discharge tomorrow with oral antibiotics to complete course of treatment (2) Acute UTI: Plan: See above (3) Atrial fibrillation: Plan: Atrial fibrillation/hypertension- Continue amiodarone, amlodipine, apixaban and metoprolol succinate (4) Hypertension: Plan: Continue metoprolol succinate 50 mg p.o. twice daily Resume amlodipine daily Plan: 81-year-old male that lives at home with his . Will request PT/OT eval's. Anticipate discharge home Admission and Anticipated Discharge Date Admission Date: July 04, 2021 Subjective Attending: Dr. Nunez Patient feeling better today but still having diaphoresis and had some chills overnight. Bacteria identified as E. coli. Continue IV antibiotic treatment. Patient denies any fever. No nausea or vomiting. No diarrhea. No other acute complaints. Review of Systems Review of Systems: All systems reviewed & are unremarkable except as noted in Subjective Physical Exam Physical Exam: GENERAL : No acute distress EYES: No icterus, gaze conjugate NOSE: No evidence of epistaxis MOUTH: No lesions or candidiasis NECK: Supple LUNGS: CTA B/L, no wheezes, rales or rhonchi HEART: Irregular, irregular, rate controlled ABDOMEN: Soft, NT, ND, BS Present EXTREMITIES: No LE edema, pedal pulses intact NEURO: A&OX3 Results & Data Results & Data ([facility]) Vital Signs (Past 12 Hours) Vital Signs Temp Pulse Pulse Pulse Resp BP Pulse Ox 07/05/21 17:01 45 L 07/05/21 16:39 36.6 C 47 L 16 160/81 H 97 07/05/21 11:10 36.5 C 46 L 46 L 18 145/76 H 96 07/05/21 07:38 36.7 C 53 L 18 155/79 H 97 Laboratory Results 07/05/21 06:24 07/05/21 06:24 Laboratory Tests 07/03/21 13:00 Procalcitonin 0.70 H Diagnostic Findings No further diagnostic imaging PG Care Time/CCT Total # of Minutes Spent Total Time Spent with Patient: Total time spent is greater than 50% in coordination of care (as documented) at patient's floor/unit and/or counseling patient: 30 minutes Coding Level of Care Code 42941 Subseq Hosp Care Lvl 2 Diagnoses Bacteremia due to Gram-negative bacteria R78.81 Acute UTI N39.0 Atrial fibrillation I48.0 Atrial fibrillation type: paroxysmal Hypertension I10 Hypertension type: essential hypertension Time Spent (min) 30 (1) Atrial fibrillation Atrial fibrillation type: paroxysmal Qualified Code(s): I48.0 - Paroxysmal atrial fibrillation (2) Hypertension Hypertension type: essential hypertension Qualified Code(s): I10 - Essential (primary) hypertension
[2021-07-05] MEDS: amLODIPine BESYLATE 5 MG TAB PO SCH (18:55)
[2021-07-06] MEDS: CEFEPIME 2,000 MG in SYRINGE 0 ML IV SCH (04:30)
[2021-07-06] MEDS: METOPROLOL SUCC 50MG EXT REL TAB PO SCH ×2 (09:18→19:39)
[2021-07-06] MEDS: amLODIPine BESYLATE 5 MG TAB PO SCH (09:18)
[2021-07-06] MEDS: APIXABAN 2.5 MG TAB PO SCH ×2 (09:19→19:45)
[2021-07-06] MEDS: AMIODARONE 200 MG TAB PO SCH (09:19)
[2021-07-06 09:29] LABS: Albumin Level 2.6 gm/dl (3.4-5.0); BUN Creatinine Ratio 10.3 (10-20); Calcium 8.6 mg/dl (8.5-10.1); Creatinine Clr Calc Pharmacy 29.2 ml/min; Est GFR (African American) 41.1 ml/min; Est GFR (Non-African American) 35.5 ml/min; Potassium 3.8 mmol/L (3.5-5.1)
[2021-07-06 09:32] LABS: Albumin Globulin Ratio 0.7 (0.9-2); Bilirubin,Total 0.7 mg/dl (0.2-1); Globulin 3.9 gm/dl (2.5-4.0); Total Protein 6.5 gm/dl (6.4-8.2)
[2021-07-06 09:54] LABS: Hematocrit (blood only) 30.4 % (42-52); Hemoglobin 9.3 g/dL (14.0-18.0); Mean Corpuscular Hemoglobin 27.6 pg (25-34); Mean Corpuscular Hgb Conc 30.6 g/dL (32-36); Mean Corpuscular Volume 90.2 fL (80-100); Mean Platelet Volume 12.5 fL (7.4-10.4); Platelet Count 83 K/uL (130-400); RDW Coefficient of Variation 22.2 % (11.5-14.5); RDW Standard Deviation 72.9 fL (36.4-46.3); Red Blood Count 3.37 M/uL (4.7-6.1); White Blood Count 4.23 K/uL (4.8-10.8)
[2021-07-06] MEDS: cefTRIAXone SODIUM 2,000 MG in DEXTROSE 5% 50 ML IV SCH (10:24)
[2021-07-06] MEDS: FERROUS SULFATE 325 MG TAB PO SCH (10:25)
[2021-07-06 10:34] LABS: Eosinophils # (auto) 0.02 K/uL (0-0.5); Eosinophils % (auto) 0.5 %; Lymphocytes # (auto) 0.93 K/uL (1.2-3.4); Monocytes # (auto) 0.51 K/uL (0.11-0.59); Monocytes % (auto) 12.1 %; Neutrophils # (auto) 2.77 K/uL (1.4-6.5); Neutrophils % (auto) 65.4 %
--- NOTE | 2021-07-06 23:16 | Hospitalist Progress Note ---
Date of Service July 06, 2021 Assessment & Plan (1) Bacteremia due to Gram-negative bacteria: Plan: 2nd to e.coli. source - UTI. in May was hospitalized for same pathogen - presumed source then was also the urine. completed a course of 3rd generation cephalosporin following that hospital stay. despite adequate Rx his bacteremia recurred. abx narrowed to IV rocephin. follow repeat blood cx's to ensure test of cure. needs DHARA to r/o prostatitis. patient has a gall bladder, but doubt the source of recurrent bacteremia; more likely source is the urine. will need minimum 2 weeks of Rx, longer if prostatitis present. (2) Acute UTI: Plan: See above 2nd e.coli rocephin IV daily (3) Atrial fibrillation: Plan: Remains in NSR. Continue amiodarone to maintain NSR. Cont apixaban and metoprolol succinate. (4) Hypertension: Plan: Controlled. cont all outpt meds. (5) Chronic renal failure, stage 3b: Plan: baseline CrCl low 30s repeat BMP am for stability (6) Right kidney mass: Plan: as noted on CT imaging will inform patient about this finding and need for urological f/u (7) DVT prophylaxis: Plan: eliquis 2.5mg BID (reduced dose due to renal dysfunction and body weight) (8) Chronic obstructive pulmonary disease: Plan: no issues (9) Moderate protein-calorie malnutrition: Plan: 6-8 pound weight loss this summer this, coupled with renal mass, prior esophageal ca, and pancytopenia - all worrisome will need additional outpt w/u for such (10) Esophageal cancer: Plan: history of 2012 no evidence of recurrence on current CT abd/pelvis (11) Pancytopenia: Plan: etiology?? TSH wnl recent b12 wnl check folate -- if normal, then send SPEP, UPEP in light of weight loss Plan: seen by PT/OT today - cleared for home when medically ready Admission and Anticipated Discharge Date Admission Date: July 04, 2021 Subjective pt feels good today eating well no fevers or chills voiding fine - no dysuria, urine does have a foul odor he recalls that following his 05/2021 admission for bacteremia he never got back to baseline - felt weak even after getting home Review of Systems Review of Systems: gen - no fevers, chills, or sweats; reports loss of weight over the last few months cv - no chest pain pulm - no cough/congestion GI - no pain, nausea or emesis Physical Exam Physical Exam: gen - thin, cachectic ( can see bones easily, etc) mouth - MMM neck - no JVD heart - RRR, s1 s2 lungs - cta b/l abd - soft, NT, no flank tenderness b/l ext - no edema, pulses 2+b/l skin - mild pallor musculo - generalized muscle wasting various muscle groups Results & Data Results & Data ([facility]) Vital Signs (Past 12 Hours) Vital Signs Temp Pulse Pulse Pulse Resp BP Pulse Ox 07/06/21 20:56 36.5 C 49 L 18 137/79 98 07/06/21 19:39 45 L 07/06/21 18:00 16 95 07/06/21 16:06 36.5 C 51 L 18 157/79 H 98 07/06/21 15:59 50 L 07/06/21 12:47 36.7 C 53 L 18 157/53 H 96 Laboratory Results Laboratory Results - last 24 hr 07/06/21 07/06/21 08:27 08:27 WBC 4.23 L RBC 3.37 L Hgb 9.3 L Hct 30.4 L MCV 90.2 MCH 27.6 MCHC 30.6 L RDW Std Deviation 72.9 H RDW Coeff of Familia 22.2 H Plt Count 83 L MPV 12.5 H Immature Gran % (Auto) 0.0 Neut % (Auto) 65.4 Lymph % (Auto) 22.0 [place] % (Auto) 12.1 Eos % (Auto) 0.5 Baso % (Auto) 0.0 Neut # (Auto) 2.77 Lymph # (Auto) 0.93 L [place] # (Auto) 0.51 Eos # (Auto) 0.02 Baso # (Auto) 0.00 Immature Gran # (Auto) 0.00 Sodium 140 Potassium 3.8 Chloride 110 H Carbon Dioxide 22 Anion Gap 8.0 BUN 18 Creatinine 1.75 H Est Cr Clr Drug Dosing 29.2 Est GFR ( Amer) 41.1 Est GFR (Non-Af Amer) 35.5 BUN/Creatinine Ratio 10.3 Glucose 202 H Calcium 8.6 Total Bilirubin 0.7 AST 14 L ALT 21 Alkaline Phosphatase 73 Total Protein 6.5 Albumin 2.6 L Globulin 3.9 Albumin/Globulin Ratio 0.7 L Diagnostic Findings urine and blood cultures with near dill-sensitive e.coli repeat blood cx's negative PG Care Time/CCT Total # of Minutes Spent Total Time Spent with Patient: Total time spent is greater than 50% in coordination of care (as documented) at patient's floor/unit and/or counseling patient: Coding Level of Care Code 33323 Subseq Hosp Care Lvl 3 Diagnoses Bacteremia due to Gram-negative bacteria R78.81 Acute UTI N39.0 Atrial fibrillation I48.0 Atrial fibrillation type: paroxysmal Hypertension I10 Hypertension type: essential hypertension Chronic renal failure, stage 3b N18.32 Right kidney mass N28.89 DVT prophylaxis Z29.9 Chronic obstructive pulmonary disease J44.9 Moderate protein-calorie malnutrition E44.0 Esophageal cancer C15.9 Pancytopenia D61.818 (1) Atrial fibrillation Atrial fibrillation type: paroxysmal Qualified Code(s): I48.0 - Paroxysmal atrial fibrillation (2) Hypertension Hypertension type: essential hypertension Qualified Code(s): I10 - Essential (primary) hypertension
[2021-07-07 08:28] LABS: Anisocytosis Present; Eosinophils # (auto) 0.03 K/uL (0-0.5); Eosinophils % (auto) 0.8 %; Hematocrit (blood only) 31.8 % (42-52); Hemoglobin 10.1 g/dL (14.0-18.0); Immature Granulocytes # (auto) 0.01 K/uL (0.00-0.02); Immature Granulocytes % (auto) 0.3 %; Lymphocytes # (auto) 1.14 K/uL (1.2-3.4); Lymphocytes % (auto) 31.5 %; Mean Corpuscular Hemoglobin 28.1 pg (25-34); Mean Corpuscular Hgb Conc 31.8 g/dL (32-36); Mean Corpuscular Volume 88.3 fL (80-100); Mean Platelet Volume 12.2 fL (7.4-10.4); Monocytes # (auto) 0.67 K/uL (0.11-0.59); Monocytes % (auto) 18.5 %; Neutrophils # (auto) 1.77 K/uL (1.4-6.5); Neutrophils % (auto) 48.9 %; Platelet Count 87 K/uL (130-400); Platelet Estimate Decreased (Normal); RDW Coefficient of Variation 21.5 % (11.5-14.5); RDW Standard Deviation 69.7 fL (36.4-46.3); White Blood Count 3.62 K/uL (4.8-10.8)
[2021-07-07 08:30] LABS: BUN Creatinine Ratio 11.5 (10-20); Calcium 8.9 mg/dl (8.5-10.1); Est GFR (African American) 51.2 ml/min; Est GFR (Non-African American) 44.2 ml/min; Potassium 3.8 mmol/L (3.5-5.1)
[2021-07-07] MEDS: cefTRIAXone SODIUM 2,000 MG in DEXTROSE 5% 50 ML IV SCH (08:47)
[2021-07-07] MEDS: APIXABAN 2.5 MG TAB PO SCH ×2 (08:47→19:42)
[2021-07-07] MEDS: amLODIPine BESYLATE 5 MG TAB PO SCH (08:47)
[2021-07-07] MEDS: AMIODARONE 200 MG TAB PO SCH (08:47)
[2021-07-07] MEDS: METOPROLOL SUCC 50MG EXT REL TAB PO SCH ×2 (08:48→19:42)
[2021-07-07] MEDS: FERROUS SULFATE 325 MG TAB PO SCH (12:47)
--- NOTE | 2021-07-07 21:31 | Hospitalist Progress Note ---
Date of Service July 07, 2021 Assessment & Plan (1) Septicemia: Plan: 2nd e.coli UTI. repeat blood cultures negative suggesting sterility. will need 14 days of Rx to cover the bacteremia but additional 2 weeks beyond that due to probable element of prostatitis. (2) Bacteremia due to Gram-negative bacteria: Plan: 2nd to e.coli. source - UTI. in May was hospitalized for same pathogen - presumed source then was also the urine. completed a course of 3rd generation cephalosporin following that hospital stay. despite adequate Rx his bacteremia recurred. abx narrowed to IV rocephin. repeat blood cx's negative. I do believe he has acute prostatitis and this will require a lengthier treatment course. patient has a gall bladder, but doubt the source of recurrent bacteremia; more likely source is the urine. would recommend 2 weeks of IV rocephin, followed by 2 weeks of oral antibiotics (to aggressively treat the probable prostatitis). check PSA am. strongly consider ID consultation. (3) Acute UTI: Plan: See above 2nd e.coli rocephin IV daily (4) Atrial fibrillation: Plan: Remains in NSR. Continue amiodarone to maintain NSR. Cont apixaban and metoprolol succinate. (5) Hypertension: Plan: Controlled. cont all outpt meds. (6) Chronic renal failure, stage 3b: Plan: baseline CrCl low 30s repeat BMP again today acceptable (7) Right kidney mass: Plan: as noted on CT imaging urology visit February 2021 references this lesion - surveillance recommended (8) DVT prophylaxis: Plan: eliquis 2.5mg BID (reduced dose due to renal dysfunction and body weight) (9) Chronic obstructive pulmonary disease: Plan: no issues (10) Moderate protein-calorie malnutrition: Plan: 6-8 pound weight loss this summer this, coupled with renal mass, prior esophageal ca, and pancytopenia - all worrisome will need additional outpt w/u for such (11) Esophageal cancer: Plan: history of 2012 no evidence of recurrence on current CT abd/pelvis (12) Pancytopenia: Plan: etiology?? TSH wnl recent b12 wnl folate wnl given weight loss, etc - check SPEP, UPEP - r/o multiple myeloma, etc deserves heme referral post-d/c for this (13) Acute prostatitis: Plan: will require up to 4 weeks of Rx see above DHARA performed today Plan: seen by PT/OT - cleared for home when medically ready Admission and Anticipated Discharge Date Admission Date: July 04, 2021 Subjective tele overnight wnl feels good no new complaints eating good at the hospital anxious for going home denies urinary symptoms we discussed that he was previously dx with prostate cancer on prostate biopsies a urology visit notes that when he had a TURP it was determined he did NOT have prostate ca?? Review of Systems Review of Systems: gen - no fevers/chills cv - no cp, no orthopnea pulm - no cough/dyspnea GI - no abd pain, N/V Physical Exam Physical Exam: gen - thin, cachectic - but NAD mouth - MMM neck - no JVD heart - RRR, s1 s2 lungs - cta b/l abd - soft, NT, no flank tenderness b/l ext - no edema, pulses 2+b/l skin - mild pallor musculo - generalized muscle wasting various muscle groups DHARA - prostate enlarged, mildly boggy, mildly tender; there is nodule vs firmness on the left - mid section of the gland; anal opening w/ likely stricture; stool brown Results & Data Results & Data ([facility]) Vital Signs (Past 12 Hours) Vital Signs Temp Pulse Pulse Pulse Resp BP BP 07/07/21 19:45 20 07/07/21 19:35 36.4 C L 57 L 20 142/69 H 07/07/21 15:36 36.5 C 56 L 18 149/76 H 07/07/21 15:06 56 L 07/07/21 12:00 37 C 60 18 144/66 H 07/07/21 10:53 36.8 C 57 L 18 122/72 07/07/21 10:00 16 Pulse Ox Pulse Ox 07/07/21 19:45 97 07/07/21 19:35 97 07/07/21 15:36 97 07/07/21 15:06 07/07/21 12:00 97 07/07/21 10:53 98 07/07/21 10:00 98 Laboratory Results Laboratory Results - last 24 hr 07/07/21 07/07/21 07/07/21 07:39 07:39 07:39 WBC 3.62 L RBC 3.60 L Hgb 10.1 L Hct 31.8 L MCV 88.3 MCH 28.1 MCHC 31.8 L RDW Std Deviation 69.7 H RDW Coeff of Familia 21.5 H Plt Count 87 L MPV 12.2 H Immature Gran % (Auto) 0.3 Neut % (Auto) 48.9 Lymph % (Auto) 31.5 [place] % (Auto) 18.5 Eos % (Auto) 0.8 Baso % (Auto) 0.0 Neut # (Auto) 1.77 Lymph # (Auto) 1.14 L [place] # (Auto) 0.67 H Eos # (Auto) 0.03 Baso # (Auto) 0.00 Immature Gran # (Auto) 0.01 Platelet Estimate Decreased L Anisocytosis Present Sodium 142 Potassium 3.8 Chloride 111 H Carbon Dioxide 24 Anion Gap 7.0 BUN 17 Creatinine 1.46 H Est Cr Clr Drug Dosing 35.0 Est GFR ( Amer) 51.2 Est GFR (Non-Af Amer) 44.2 BUN/Creatinine Ratio 11.5 Glucose 89 Calcium 8.9 Folate 8.30 PG Care Time/CCT Total # of Minutes Spent Total Time Spent with Patient: Total time spent is greater than 50% in coordination of care (as documented) at patient's floor/unit and/or counseling patient: Coding Level of Care Code 64924 Subseq Hosp Care Lvl 3 Diagnoses Bacteremia due to Gram-negative bacteria R78.81 Acute UTI N39.0 Atrial fibrillation I48.0 Atrial fibrillation type: paroxysmal Hypertension I10 Hypertension type: essential hypertension Chronic renal failure, stage 3b N18.32 Right kidney mass N28.89 DVT prophylaxis Z29.9 Chronic obstructive pulmonary disease J44.9 Moderate protein-calorie malnutrition E44.0 Esophageal cancer C15.9 Pancytopenia D61.818 Septicemia A41.9 Acute prostatitis N41.0 (1) Atrial fibrillation Atrial fibrillation type: paroxysmal Qualified Code(s): I48.0 - Paroxysmal atrial fibrillation (2) Hypertension Hypertension type: essential hypertension Qualified Code(s): I10 - Essential (primary) hypertension
[2021-07-08 06:57] LABS: Basophils # (auto) 0.01 K/uL (0-0.2); Basophils % (auto) 0.2 %; Eosinophils # (auto) 0.04 K/uL (0-0.5); Hematocrit (blood only) 32.2 % (42-52); Hemoglobin 10.3 g/dL (14.0-18.0); Lymphocytes # (auto) 0.93 K/uL (1.2-3.4); Lymphocytes % (auto) 22.7 %; Mean Corpuscular Hemoglobin 27.9 pg (25-34); Mean Corpuscular Volume 87.3 fL (80-100); Mean Platelet Volume 11.2 fL (7.4-10.4); Monocytes # (auto) 0.82 K/uL (0.11-0.59); Neutrophils # (auto) 2.29 K/uL (1.4-6.5); Neutrophils % (auto) 56.1 %; Platelet Count 113 K/uL (130-400); RDW Coefficient of Variation 20.8 % (11.5-14.5); RDW Standard Deviation 66.9 fL (36.4-46.3); Red Blood Count 3.69 M/uL (4.7-6.1); White Blood Count 4.09 K/uL (4.8-10.8)
[2021-07-08 07:25] LABS: Anisocytosis Present
[2021-07-08 07:27] LABS: Est GFR (African American) 46.5 ml/min; Est GFR (Non-African American) 40.1 ml/min
[2021-07-08] MEDS: APIXABAN 2.5 MG TAB PO SCH (08:57)
[2021-07-08] MEDS: cefTRIAXone SODIUM 2,000 MG in DEXTROSE 5% 50 ML IV SCH (08:57)
[2021-07-08] MEDS: AMIODARONE 200 MG TAB PO SCH (08:58)
[2021-07-08] MEDS: amLODIPine BESYLATE 5 MG TAB PO SCH (08:58)
[2021-07-08] MEDS: METOPROLOL SUCC 50MG EXT REL TAB PO SCH (08:59)
[2021-07-08] MEDS: FERROUS SULFATE 325 MG TAB PO SCH (11:58)
--- NOTE | 2021-07-08 14:52 | Discharge Summary ---
Date of Service July 08, 2021 Admission HPI Per Admitting Provider The patient is an 81-year-old male with a past medical history including bacteremia due to E. coli, acute on chronic kidney disease, atrial fibrillation with RVR, esophageal cancer, permanent atrial fibrillation, hypertension, long- term use of anticoagulants, stage III chronic kidney disease, renal neoplasm, prostate cancer, GERD, COPD, anemia, chronic diastolic CHF and hypercholesterolemia. Patient was seen in the emergency department earlier in the day for symptoms of abdominal bloating and gas, for which he has been taking milk of magnesia and Tums without improvement. Among other testing, blood cultures were performed, and patient was discharged home. When the morning blood cultures returned gram-negative bacteremia, patient was called back into the ED this evening for admission. Patient did have admission from 06/09- 06/11/2021 for gram-negative bacteremia due to E. coli, from unknown but presumed urinary source Discharge Data Allergies Allergy/AdvReac Type Severity Reaction Status Date / Time amoxicillin Allergy Mild RASH Verified 07/04/21 00:01 ampicillin Allergy Mild RED Verified 07/04/21 00:01 PIMPLES ON CHEST Penicillins Allergy Mild RASH Verified 07/04/21 00:01 pollen extracts AdvReac Watery Eye Unverified 07/04/21 00:01 Consultations 07/04/21 00:38 ED Decision to Admit Stat Hospital Course (1) Septicemia: 2nd e.coli UTI. repeat blood cultures negative suggesting sterility. will need 14 days of Rx to cover the bacteremia but additional 2 weeks beyond that due to probable element of prostatitis. (2) Bacteremia due to Gram-negative bacteria: 2nd to e.coli. source - UTI. in May was hospitalized for same pathogen - presumed source then was also the urine. completed a course of 3rd generation cephalosporin following that hospital stay. despite adequate Rx his bacteremia recurred. abx narrowed to IV rocephin. repeat blood cx's negative. I do believe he has acute prostatitis and this will require a lengthier treatment course. patient has a gall bladder, but doubt the source of recurrent bacteremia; more likely source is the urine. would recommend 2 weeks of IV rocephin, followed by 2 weeks of oral antibiotics (to aggressively treat the probable prostatitis). check PSA am. strongly consider ID consultation. (3) Acute UTI: See above 2nd e.coli rocephin IV daily (4) Atrial fibrillation: Remains in NSR. Continue amiodarone to maintain NSR. Cont apixaban and metoprolol succinate. (5) Hypertension: Controlled. cont all outpt meds. (6) Chronic renal failure, stage 3b: baseline CrCl low 30s repeat BMP again today acceptable (7) Right kidney mass: as noted on CT imaging urology visit February 2021 references this lesion - surveillance recommended (8) DVT prophylaxis: eliquis 2.5mg BID (reduced dose due to renal dysfunction and body weight) (9) Chronic obstructive pulmonary disease: no issues (10) Moderate protein-calorie malnutrition: 6-8 pound weight loss this summer this, coupled with renal mass, prior esophageal ca, and pancytopenia - all worrisome will need additional outpt w/u for such (11) Esophageal cancer: history of 2012 no evidence of recurrence on current CT abd/pelvis (12) Pancytopenia: etiology?? TSH wnl recent b12 wnl folate wnl given weight loss, etc - check SPEP, UPEP - r/o multiple myeloma, etc deserves heme referral post-d/c for this (13) Acute prostatitis: will require up to 4 weeks of Rx see above DHARA performed today seen by PT/OT - cleared for home when medically ready Discharge Plan Discharge Items Patient Disposition: Home - Self-Care Reason For Visit: Bloodstream infection Discharge Diagnosis: 1. Bacteremia (bloodstream infection) due to urinary tract infection / prostatitis - improving. 2. Prostatitis is infection of the prostate gland. 3. Low white blood cells, anemia, and low platelets - follow-up with Dr Higgins advised. Activity: As commented below Activity Comment: gradually increase activities over the next 1-2 weeks Non-emergency contact: Primary Care Provider, Oncologist and Urologist Call non-emergency contact if: you have any medication questions, your symptoms worsen and you have a fever Follow-up/Referrals: Randal Genao MD [Primary Care Provider] - (within 1 week) Benjamin Rosa MD [Physician] - (2-4 weeks -- prostatitis, recurrent UTI, BPH.) Mary Higgins MD [Hospitalist] - (see Dr Higgins, 2-3 weeks, for low white blood cells/anemia/low platelets and weight loss. ) Diet: Regular Addtl Attending Provider Instructions: Mr Bridges, You were hospitalized after we found evidence of bacteria in your bloodstream. This is called "bacteremia." Typically blood is sterile. The infection in the blood came from your urinary tract. You likely have had a combination of urinary tract infection and prostatitis (infection of the prostate). You have improved nicely with IV antibiotics, and the infection in the blood has cleared nicely. A CT scan of the abdomen was obtained during the visit and did not show anything else that would have caused your bloodstream infection. We also saw that your CBC blood counts were all low. You had low white blood cell count, platelets, and red cells. Dr Higgins, your oncologist, should recheck all of this in the near-future. The CBC abnormalities could be from your infection as well as iron deficiency but there may be other issues causing it. Recommendations - 1. ceftriaxone antibiotic once daily for 8 days starting , 07/09/21. Please report the [facility] at [facility] for this daily infusion. At the conclusion of the 8 days the IV will be removed. This is your antibiotic for the blood stream infection. Please keep the IV covered during showers; keep clean/dry. 2. after the IV antibiotic course is complete please start cephalexin 500mg twice daily for 14 days. This antibiotic is to clear the urine and prostate infection. 3. take lactinex probiotics for the next 30 days. Script sent to pharmacy for you. 4. please STOP your metoprolol succinate. Your heart rates were low during the stay and it would not be prudent to restart this medication as it could make your heart rate go too low. 5. follow-up - see separate section 6. please throw out any old oral antibiotics you may have at home. Return to [facility] if - * you have fevers over 100 degrees * you have worsening abdominal pain * you have severe diarrhea * you have shortness of breath * you have difficulty passing your urine * any other concerns It was a pleasure to care for you! Dr Kuo Pending Studies at Discharge: No Stand-Alone Forms: My [facility], Smoking Cessation Medications and DC Order Prescriptions: New ceftriaxone 2 gram recon soln 2 g IV DAILY 8 Days Qty: 8 RF: 0 cephalexin 500 mg capsule 500 mg PO BID 14 Days Qty: 28 RF: 0 Lactinex 1 million cell tablet,chewable 1 tab PO TID Qty: 90 RF: 0 Continued Eliquis 2.5 mg tablet 2.5 mg PO BID Qty: 180 RF: 3 amiodarone 200 mg tablet 200 mg PO DAILY Qty: 90 RF: 3 amlodipine 5 mg tablet 5 mg PO DAILY Qty: 90 RF: 3 ferrous sulfate [Iron (ferrous sulfate)] 325 mg (65 mg iron) Tablet 325 mg PO QDL RF: 0 Discontinued metoprolol succinate 50 mg tablet extended release 24 hr 50 mg PO BID Qty: 180 RF: 3 cefdinir 300 mg capsule 300 mg PO BID 10 Days Qty: 20 RF: 0 Discharge Orders: Discharge Order (Routine); Ordered 07/08/21 Ordered By: Kimo Joaquin/Other Patient Handouts: Bacterial Prostatitis, Urinary Tract Infections in Men Admission Data Admit Date/Time: 07/04/21 01:23 Attending Provider: Kimo Kuo Admit Provider: Salas Lawrence Primary Care Provider: Randal Genao Other Providers: Salas Lawrence Coding Diagnoses Septicemia A41.9 Bacteremia due to Gram-negative bacteria R78.81 Acute UTI N39.0 Atrial fibrillation I48.0 Atrial fibrillation type: paroxysmal Hypertension I10 Hypertension type: essential hypertension Chronic renal failure, stage 3b N18.32 Right kidney mass N28.89 DVT prophylaxis Z29.9 Chronic obstructive pulmonary disease J44.9 Moderate protein-calorie malnutrition E44.0 Esophageal cancer C15.9 Pancytopenia D61.818 Acute prostatitis N41.0
[2021-07-10 11:07] LABS: Albumin 3.4 g/dL (3.8-4.8); Alpha 1 Globulin 0.4 g/dL (0.2-0.3); Alpha 2 Globulin 0.9 g/dL (0.5-0.9); Beta-1-Globulin 0.4 g/dL (0.4-0.6); Beta-2-Globulin 0.3 g/dL (0.2-0.5); Gamma Globulin 0.9 g/dL (0.8-1.7); Monoclonal Protein Band 1 0.5 g/dL (NONE DETECTED); Monoclonal Protein Band 2 DNR g/dL (NONE DETECTED); Monoclonal Protein Band 3 DNR g/dL (NONE DETECTED); Total Protein 6.2 g/dL (6.1-8.1)
[2021-07-10 12:15] LABS: Creatinine Ur 40 mg/dL (20-320); Protein, Urine Random 29 mg/dL (5-25); Ur Protein/Creat Ratio mg/g 725 mg/g creat (22-128); Urine Abnormal Protein Band 1 DNR mg/dL (NONE DETECTED); Urine Abnormal Protein Band 2 DNR mg/dL (NONE DETECTED); Urine Abnormal Protein Band 3 DNR mg/dL (NONE DETECTED); Urine Protein/Creatinine Ratio 0.725 (0.022-0.128)
== END 2021-07-08 18:35 | disposition home or self-care (01) | DRG 872 ==
LOC: ED 23:22 → SUATTDRO 07-04 01:23 → EDINP 07-04 01:23 → 2W 07-04 03:17